=== PATIENT | female | born 1940 | race Caucasian/White ===

== ENCOUNTER 2020-01-19 08:54 | Emergency (ER) | payer MEDICARE, BC, SELFPAY ==
--- NOTE | ~2020-01-19 | CT_ITS ---
EXAMINATION: CT brain wo con DATE: 01/19/2020 09:31 INDICATION: Fall with head injury TECHNIQUE: Computed tomography (CT) of the head was performed without intravenous contrast. Sagittal and coronal reconstructions were performed. The mA was adjusted according to patient size. Iterative reconstruction technique was employed. The dose-length product was 605.33 mGy-cm. COMPARISON: head CT dated 03/24/2019 FINDINGS: No acute fracture. Left frontal temporal craniotomy which extends through the opacified left frontal sinus with fixation plates and screws. Aneurysm clip in the suprasellar cistern. Chronic encephalomal acia in the left frontal temporal region. No acute intracranial hemorrhage, acute infarction or abnor mal extra axial fluid collection. There is moderate scattered white matter hypoattenuation consistent with chronic small vessel ischemic disease. Ventricles are normal and symmetric. No mass/mass effec t. Changes of bilateral intraocular lens replacement. Mastoid air cells and middle ear cavities are c lear. IMPRESSION: 1. No acute fracture or acute intracranial process. 2. Chronic encephalomalacia in the left frontal temporal region with change of prior left frontotempo ral craniotomy and aneurysm clipping at the suprasellar cistern. 3. Moderate scattered nonspecific white matter hypoattenuation consistent with chronic small vessel i schemic disease. Reviewed, dictated and finalized at location A. IMPRESSION: 1. No acute fracture or acute intracranial process. 2. Chronic encephalomalacia in the left frontal temporal region with change of prior left frontotemporal craniotomy and aneurysm clipping at the suprasellar c istern. 3. Moderate scattered nonspecific white matter hypoattenuation consistent with chronic small vessel ischemic disease.
[2020-01-19 09:04] VITALS: BP 115/91; PULSE 69; RESP 18; TEMP 36.6; O2SAT 99
--- NOTE | 2020-01-19 09:07 | ED.FALL ---
HPI - Fall General Chief Complaint: Fall Stated Complaint: fall/hi Time Seen by Provider: 01/19/20 09:06 History of Present Illness HPI Narrative: She fel backwards out of her wheel chair this morning and struck her head. She denies any pain or other symptom. She does report difficulty getting up after, but she says this is not unusual for her. Related Data Allergies Allergy/AdvReac Type Severity Reaction Status Date / Time ciprofloxacin Allergy Mild Verified 05/07/19 18:39 codeine Allergy Mild Verified 05/07/19 18:39 Penicillins Allergy Mild Hives / Verified 05/07/19 18:39 Red Face sulfamethoxazole Allergy Unknown Verified 05/07/19 18:39 tetracycline Allergy Unknown Verified 05/07/19 18:39 trimethoprim Allergy Unknown Verified 05/07/19 18:39 CIPROFLOXACIN HCL Allergy Mild Uncoded 05/07/19 18:39 Contrast Media Allergy Mild Uncoded 05/07/19 18:39 Review of Systems Review of Systems: All systems reviewed & are unremarkable except as noted in HPI and below Neurologic: Denies headache(s) and Denies focal weakness PMFSH Past Medical History Medical History Anxiety Bilateral cataracts Brain aneurysm Chronic back pain HTN (hypertension) Hypothyroid IBS (irritable bowel syndrome) Mitral valve prolapse Orthostatic hypertension Parkinsons Pneumonia TIA (transient ischemic attack) UTI (urinary tract infection) Surgical History Surgical History H/O: hysterectomy History of appendectomy History of cataract surgery History of cholecystectomy History of tonsillectomy Status post clamping of cerebral aneurysm Family History Family History Mother COPD (chronic obstructive pulmonary disease) Lung cancer Sibling COPD (chronic obstructive pulmonary disease) Father Acute myocardial infarction Sibling Breast cancer Social History Social History Smoking status: Never smoker Alcohol intake: never Substance use: never Gender identity (if verbalized by the patient): Female Exam Const: General: healthy appearing, no acute distress and alert Orientation/consciousness: patient oriented x3 HENMT: Head: normal to inspection Neck: Neck: normal visual inspection and no lymphadenopathy Chest: Chest palpation & inspection: no tenderness Resp: Effort & Inspection: normal respiratory effort Auscultation: clear to auscultation bilaterally, no rales, no rhonchi and no wheezes Cardio: Jugular venous distension: no JVD Rate: regular rate Rhythm: regular rhythm Heart sounds: no murmurs GI: Inspection: non-distended GI Palp: Yes Soft to palpation and No Tenderness to palpation present (GI) Skin: General skin exam: normal color Neuro: General: patient oriented x3, moves all extremities, no focal motor deficits and CN's II-XI intact bilaterally Speech: normal speech Other: Resting tremor Extrem: General: no edema Psych: Appearance: well kempt Affect: normal affect Course Vital Signs Vital signs: Vital Signs Temperature 36.6 C 01/19/20 09:04 Pulse Rate 69 01/19/20 09:04 Respiratory Rate 18 01/19/20 09:04 Blood Pressure 115/91 H 01/19/20 09:04 Pulse Oximetry 99 01/19/20 09:04 Temperature 36.6 C 01/19/20 09:04 Pulse Rate 69 01/19/20 09:04 Respiratory Rate 18 01/19/20 09:04 Blood Pressure 115/91 H 01/19/20 09:04 Pulse Oximetry 99 01/19/20 09:04 Discharge Plan Discharge Clinical Impression: Closed head injury Qualifiers: Encounter type: initial encounter Qualified Code(s): S09.90XA - Unspecified injury of head, initial encounter Patient Disposition: NH Long Term/Asst Living Condition: Stable Instructions: Head Injury (ED) Follow-up/Referrals: UNKNOWN,DOCTOR [Primary Care Provider] - Discharge Date/Time: 01/19/20
== END 2020-01-19 10:11 ==
PROVIDERS: Emergency Provider Emergency Medicine
DX: S09.90XA Unspecified injury of head, initial encounter (principal); F41.9 Anxiety disorder, unspecified; I10 Essential (primary) hypertension; E03.9 Hypothyroidism, unspecified; G89.29 Other chronic pain; W05.0XXA Fall from non-moving wheelchair, initial encounter
CPT/HCPCS: 70450; 99284

== ENCOUNTER 2020-01-28 07:24 | Emergency (ER) | payer MEDICARE, BC, SELFPAY ==
--- NOTE | ~2020-01-28 | CT_ITS ---
EXAMINATION: CT brain wo con DATE: 01/28/2020 07:44 INDICATION: Fall with posterior head injury TECHNIQUE: Computed tomography (CT) of the head was performed without intravenous contrast. Sagittal and coronal reconstructions were performed. The mA was adjusted according to patient size. Iterative reconstruction technique was employed. The dose-length product was 605.33 mGy-cm. COMPARISON: head CT dated FINDINGS: Left parietal scalp hematoma and laceration. No acute fracture. Left frontal temporal craniotomy whic h extends through the opacified left frontal sinus with fixation plates and screws. Aneurysm clip in the suprasellar cistern. Chronic encephalomalacia in the left frontal temporal region. No acute intra cranial hemorrhage, acute infarction or abnormal extra axial fluid collection. There is moderate scat tered white matter hypoattenuation consistent with chronic small vessel ischemic disease. Ventricles are normal and symmetric. No mass/mass effect. Changes of bilateral intraocular lens replacement. [place] air cells and middle ear cavities are clear. IMPRESSION: 1. Left parietal scalp, and laceration. No acute fracture or acute intracranial process. 2. Chronic encephalomalacia in the left frontal temporal region with change of prior left frontotempo ral craniotomy and aneurysm clipping at the suprasellar cistern. 3. Moderate scattered nonspecific white matter hypoattenuation consistent with chronic small vessel i schemic disease. Reviewed, dictated and finalized at location A. IMPRESSION: 1. Left parietal scalp, and laceration. No acute fracture or acute intracranial process. 2. Chronic encephalomalacia in the left frontal temporal region with change of prior left frontotemporal craniotomy and aneurysm clipping at the suprasellar c istern. 3. Moderate scattered nonspecific white matter hypoattenuation consistent with chronic small vessel ischemic disease.
--- NOTE | 2020-01-28 07:14 | ED.FALL ---
HPI - Fall General Chief Complaint: Fall Stated Complaint: FALL/HI History of Present Illness HPI Narrative: 79 yo female w/ h/o parkinson's disease, orthostatic hypotension [facility]. She says that she stood up this morning and felt like her knees were giving out. She then fell backwards and struck her head. No lOC. Mild pain. Related Data Home Medications Medication Instructions Recorded Confirmed aspirin [Aspir-81] 81 mg PO 01/28/20 atorvastatin 10 mg PO 01/28/20 carbidopa-levodopa 25 - 100 PO 01/28/20 escitalopram oxalate 20 mg 01/28/20 fludrocortisone 0.1 mg 01/28/20 hydralazine 10 mg PRN PRN 01/28/20 01/28/20 levothyroxine 75 mcg 01/28/20 potassium chloride 20 meq PO 01/28/20 Allergies Allergy/AdvReac Type Severity Reaction Status Date / Time ciprofloxacin Allergy Mild Unknown Verified 01/28/20 07:43 codeine Allergy Mild Unknown Verified 01/28/20 07:43 Penicillins Allergy Mild Hives / Verified 01/28/20 07:43 Red Face sulfamethoxazole Allergy Unknown Unknown Verified 01/28/20 07:43 tetracycline Allergy Unknown Unknown Verified 01/28/20 07:43 trimethoprim Allergy Unknown Unknown Verified 01/28/20 07:43 CIPROFLOXACIN HCL Allergy Mild Unknown Uncoded 01/28/20 07:43 Contrast Media Allergy Mild Unknown Uncoded 01/28/20 07:43 Review of Systems Review of Systems: All systems reviewed & are unremarkable except as noted in HPI and below Constitutional: Constitutional: Denies fever(s) Cardiovascular: Cardiovascular: Denies chest pain Respiratory: Respiratory: Denies dyspnea Gastrointestinal: Gastrointestinal: Denies nausea Neurologic: Reports dizziness and Denies syncope [facility] Social History Social History Smoking status: Never smoker Alcohol intake: never Substance use: never Gender identity (if verbalized by the patient): Female Exam Const: General: healthy appearing, no acute distress and alert Orientation/consciousness: patient oriented x3 HENMT: Other: 3 cm scalp laceration Eyes: Pupils: Equal, round and reactive pupils present Neck: Neck: normal visual inspection and no lymphadenopathy Chest: Chest palpation & inspection: no tenderness Resp: Effort & Inspection: normal respiratory effort Auscultation: clear to auscultation bilaterally, no rales, no rhonchi and no wheezes Cardio: Jugular venous distension: no JVD Rate: regular rate Rhythm: regular rhythm Heart sounds: no murmurs GI: Inspection: non-distended GI Palp: Yes Soft to palpation and No Tenderness to palpation present (GI) Skin: General skin exam: normal color Neuro: General: patient oriented x3 and moves all extremities Speech: normal speech Extrem: General: no edema Psych: Appearance: well kempt Affect: normal affect Course Vital Signs Vital signs: Vital Signs Temperature 36.7 C 01/28/20 07:22 Pulse Rate 64 01/28/20 07:22 Respiratory Rate 18 01/28/20 07:22 Blood Pressure 190/75 H 01/28/20 07:22 Pulse Oximetry 100 01/28/20 07:22 Temperature 36.7 C 01/28/20 07:22 Pulse Rate 68 01/28/20 10:40 Respiratory Rate 18 01/28/20 10:40 Blood Pressure 154/80 H 01/28/20 10:40 Pulse Oximetry 98 01/28/20 10:40 Procedures Laceration Laceration 1: Site: scalp Size (cm): 3 Description: linear Depth: simple, single layer Local Anesthetic: lidocaine 1% and with epi Amount of anesthesia used (mL): 3 ====== Skin Level ====== Skin layer closed with: lai Number of sutures: 3 ====== Subcutaneous Layer ====== ====== Muscle Layer ====== ====== Tendon Layer ====== MDM - Fall MDM Narrative Medical decision making narrative: Dehydration, orthostatic hypotension, UTI, mechanical fall Lab Data Result diagrams: 01/28/20 08:04 01/28/20 08:04 Labs: Lab Results 01/27
[2020-01-28 07:22] VITALS: BP 190/75; PULSE 64; RESP 18; TEMP 36.7; O2SAT 100
--- NOTE | 2020-01-28 07:30 | ECG_ITS ---
Measurements Intervals [place] Rate: 64 P: 35 [place]: 172 QRS: -22 QRSD: 97 T: 21 QT: 433 QTc: 448 Interpretive Statements SINUS RHYTHM BASELINE ARTIFACT- I, III, AVL, V1-V2 NORMAL ECG Electronically Signed On 01-28-2020 7:59:38 CDT by Abdulaziz Montague D.O.
[2020-01-28] MEDS: SODIUM CHLORIDE 0.9% IV 500 ML 999 ML IV CONT (07:59)
[2020-01-28] MEDS: ONDANSETRON INJ 4 MG/2 ML VIAL IV PUSH (07:59)
[2020-01-28 08:12] LABS: Basophils Percent Auto 0.5 % (0.2-1.2); Eosinophils Absolute Auto 0.1 K/mm3 (0-0.3); Eosinophils Percent Auto 0.7 % (0-4.4); Hematocrit 35.4 % (37.0-47.0); Hemoglobin 11.5 g/dL (12.0-15.0); Immature Granulocyte Absolute 0.02 K/mm3 (0.00-0.031); Immature Granulocyte Percent A 0.2 % (0-0.5); Lymphocytes Absolute Auto 0.93 K/mm3 (0.9-3.2); Lymphocytes Percent Auto 11.5 % (18.3-44.2); Mean Corpuscular HGB Conc 32.5 g/dl (32-36); Mean Corpuscular Hemoglobin 30.7 pg (26-34); Mean Corpuscular Volume 94.4 fl (80-100); Mean Platelet Volume 11.5 fl (7.4-10.4); Monocytes Absolute Auto 0.4 K/mm3 (0.1-0.6); Monocytes Percent Auto 4.5 % (2.6-8.5); Neutrophils Absolute Auto 6.7 K/mm3 (1.3-6.7); Neutrophils Percent Auto 82.6 % (45.5-73.1); Platelet Count Result 140 k/mm3 (150-375); Red Blood Count 3.75 M/mm3 (4.2-5.4); Red Cell Distribution Width 12.9 % (11.5-14.5); White Blood Count 8.1 K/mm3 (4.5-10.0)
--- NOTE | 2020-01-28 08:15 | PC.NURSE ---
Pt unable to urinate at this time. Pt given water to drink
[2020-01-28 08:23] LABS: Blood Urea Nitrogen 27 mg/dL (7-17); Calcium 8.3 mg/dL (8.4-10.2); Carbon Dioxide 26 mmol/L (22-30); Chloride 106 mmol/L (98-107); Estimated CRCL calculation 34 ml/min; Estimated Glomerular Filt Rate 43; Glucose 96 mg/dL (65-105); Potassium 4.3 mmol/L (3.4-5.0); Sodium 138 mmol/L (137-145)
[2020-01-28 09:31] LABS: Appearance Urine Clear (Clear); Bilirubin Urine Negative (Negative); Blood Urine 1+ (Negative); Color Urine Yellow (Yellow); Glucose Urine UA Negative (Negative); Ketones Urine Negative (Negative); Leukocyte Esterase Ur 2+ LEU/UL (Negative); Nitrate Urine Negative (Negative); Protein Urine Negative (Negative); Urobilinogen Urine 0.2 mg/dL (<2.0)
[2020-01-28 09:48] VITALS: BP 153/87; PULSE 61; RESP 14; O2SAT 97
[2020-01-28 09:49] LABS: Add Urine Microscopic? YES
[2020-01-28 09:50] LABS: WBC Urine 51-75 /hpf
[2020-01-28 09:51] LABS: Bacteria Urine Trace /hpf; Squamous Epithelial Cell Urine Few /hpf (Few)
--- NOTE | 2020-01-28 10:02 | PC.NURSE ---
Pts daughter called to come and case picker patient
[2020-01-28] MEDS: NITROFURANTOIN MONOHYD MACROCR 100 MG CAP PO (10:39)
[2020-01-28 10:40] VITALS: BP 154/80; PULSE 68; RESP 18; O2SAT 98
== END 2020-01-28 10:43 ==
PROVIDERS: Emergency Provider Emergency Medicine
DX: S01.01XA Laceration without foreign body of scalp, initial encounter (principal); G20 Parkinson's disease; W01.0XXA Fall on same level from slipping, tripping and stumbling without subsequent striking against object, initial encounter; R82.998 Other abnormal findings in urine
CPT/HCPCS: 12002; 36415; 70450; 80048; 81001; 85025; 87077; 87086; 87088; 87186; 93005; 96360; 96374; 99284; A9270; J2405; J7040

== ENCOUNTER 2020-03-06 11:22 | Emergency (ER) | payer MEDICARE, BC, SELFPAY ==
[2020-03-06] VITALS (8 sets, daily range): BP systolic 140–235; BP diastolic 51–91; PULSE 60–70; RESP 16–19; TEMP 36.5–37.2; O2SAT 96–99
--- NOTE | ~2020-03-06 | CT_ITS ---
EXAMINATION: CT brain wo con EXAM DATE: 03/06/2020 11:42 INDICATION: Fall, head injury. TECHNIQUE: Spiral CT of the head was performed without contrast. Axial, coronal and sagittal images were reviewed. The dose-length product (DLP) for this examination was 605.33 mGy-cm. The exposure w as tailored according to patient size, and iterative reconstruction (ASIR) was used as additional dos e reduction technique. Comparison is made to prior examination from 01/28/2020. FINDINGS: There is old left frontal craniotomy with opacified left frontal sinus, similar to prior st udy. There is underlying left frontal encephalomalacia. Left parasellar aneurysm clip. There is no ac lac vieux intraparenchymal hemorrhage. No evidence of intraparenchymal brain mass lesion. No evidence of acute infarction. Please note that initial head CT has limited sensitivity for small or acute infarc tions. There is mild to moderate periventricular and subcortical hypodensity, nonspecific but probabl y related to small vessel ischemic disease. There is mild to moderate prominence of the sulci and v entricles related to cerebral atrophy. There is intracranial carotid arteriosclerosis. There are n o extra-axial collections. There is no mass effect or midline shift. Patient has had bilateral ocul ar lens surgery. Soft tissue is unremarkable. There is some dependent left maxillary sinus opacity. There is no interval change. IMPRESSION: 1. No acute intracranial findings. 2. Surgical, chronic changes. Reviewed, dictated and finalized at location B.
--- NOTE | ~2020-03-06 | CT_ITS ---
EXAMINATION: CT facial & cervical spine wo EXAM DATE: 03/06/2020 11:42 INDICATION: Fall, headache and facial injury. TECHNIQUE: Spiral CT of the facial bones was acquired in the axial plane. Coronal reformatted images were also reviewed. Spiral CT of the cervical spine was performed without contrast. Axial images we re reviewed. Coronal and sagittal reformatted images were also reviewed. The dose-length product (DL P) for this examination was 242.93 mGy-cm. The exposure was tailored according to patient size, and iterative reconstruction (ASIR) was used as additional dose reduction technique. Correlation is made to CT cervical spine 11/20/2018. FINDINGS: FACIAL CT: Small nondisplaced fracture of the left maxillary sinus posterior wall, with small amount of proteinaceous fluid likely blood in the maxillary sinus. No other facial fracture identified. Larg e contusion over the left cheek. The orbits, globes and extraocular muscles are unremarkable. Bila teral cataract surgery. There is large contusion over the left cheek. CERVICAL CT: There is no evidence of acute cervical fracture. The odontoid process is intact. Pre-d ens space is normal. Prevertebral soft tissue is normal. There are no soft tissue abnormalities mari ntified. There is no disc space widening or traumatic vertebral body subluxation suspected. There i s advanced cervical arthropathy. There is moderate disc disease at the lower cervical levels. The C2 -3 facet joints are fused. IMPRESSION: 1. Acute nondisplaced left maxillary sinus posterior wall fracture, small amount of blood in the sin us. 2. Advanced cervical arthropathy. No cervical fracture. Reviewed, dictated and finalized at location B. IMPRESSION: 1. Acute nondisplaced left maxillary sinus posterior wall fracture, small amou nt of blood in the sinus. 2. Advanced cervical arthropathy. No cervical fracture.
--- NOTE | 2020-03-06 11:30 | PC.NURSE ---
Assessment reveals swelling and bruising to left cheek along with complaints of pain to the area. No crepitus noted with palpation. Patient has free movement of eyes without difficulty. There is also a bruise noted to the patient's left anterior shoulder, however there is no complaint of pain with palpation to the area. No other obvious injuries noted at this time.
--- NOTE | 2020-03-06 11:32 | ED.AMS ---
HPI - Altered Mental Status General Chief Complaint: Fall Stated Complaint: Fall Time Seen by Provider: 03/06/20 11:30 History of Present Illness HPI narrative: She tripped over a curb in the parking lot while leaving an eye doctor appointment today. This was witnessed. No lOC. After the fall she was noted to be confused. EMS reports that she was only oriented to self. On arrival to the ED she is still confused. She only complains of pain to the left shoulder. I have seen the patient myself in the past and know the she has a h/o orthostatic hypotension and very labile blood pressure and parkinson's disease. Related Data Home Medications Medication Instructions Recorded Confirmed aspirin [Aspir-81] 81 mg PO 01/28/20 atorvastatin 10 mg PO 01/28/20 carbidopa-levodopa 25 - 100 PO 01/28/20 escitalopram oxalate 20 mg 01/28/20 fludrocortisone 0.1 mg 01/28/20 levothyroxine 75 mcg 01/28/20 potassium chloride 20 meq PO 01/28/20 Allergies Allergy/AdvReac Type Severity Reaction Status Date / Time ciprofloxacin Allergy Mild Unknown Verified 03/06/20 11:48 codeine Allergy Mild Unknown Verified 03/06/20 11:48 Penicillins Allergy Mild Hives / Verified 03/06/20 11:48 Red Face sulfamethoxazole Allergy Unknown Unknown Verified 03/06/20 11:48 tetracycline Allergy Unknown Unknown Verified 03/06/20 11:48 trimethoprim Allergy Unknown Unknown Verified 03/06/20 11:48 CIPROFLOXACIN HCL Allergy Mild Unknown Uncoded 03/06/20 11:48 Contrast Media Allergy Mild Unknown Uncoded 03/06/20 11:48 Review of Systems Review of Systems: ROS unobtainable: Yes unobtainable due to mental status [facility] Social History Social History Smoking status: Never smoker Alcohol intake: never Substance use: never Gender identity (if verbalized by the patient): Female Exam Const: General: no acute distress and confusion Other: oriented x2 HENMT: Other: Swelling to left cheek Eyes: Other: Pupils dilated(likely from eye exam prior to fall) Neck: Neck: normal visual inspection Chest: Chest palpation & inspection: normal inspection of the chest and no tenderness Resp: Effort & Inspection: normal respiratory effort Auscultation: clear to auscultation bilaterally Cardio: Rate: regular rate Rhythm: regular rhythm GI: GI Palp: Yes Soft to palpation and No Tenderness to palpation present (GI) Back/Spine/Pelvis: Cervical Spine: collar present Other: No tenderness Skin: Other: Left facial bruising Neuro: General: moves all extremities Speech: Abnormal speech present (mildly delayed) Course Vital Signs Vital signs: Vital Signs Temperature 37.2 C 03/06/20 11:22 Pulse Rate 70 03/06/20 11:22 Respiratory Rate 18 03/06/20 11:22 Blood Pressure 235/91 H 03/06/20 11:22 Pulse Oximetry 99 03/06/20 11:22 Temperature 36.5 C 03/06/20 13:01 Pulse Rate 69 03/06/20 14:08 Respiratory Rate 17 03/06/20 14:08 Blood Pressure 140/51 L 03/06/20 14:08 Pulse Oximetry 98 03/06/20 14:08 MDM - Altered Mental Status MDM Narrative Medical decision making narrative: She has a non-displaced posterior maxillary wall fracture. Will provide information for Plastics follow-up Medical Records Attestation: I reviewed the patient's medical records. Lab Data Attestation: I reviewed the patient's lab results. Result diagrams: 03/06/20 11:46 03/06/20 11:46 Labs: Lab Results 03/06/20 03/06/20 03/06/20 Range/Units 11:46 11:46 11:46 WBC 7.6 (4.5-10.0) K/mm3 RBC 3.93 L (4.2-5.4) M/mm3 Hgb 11.8 L (12.0-15.0) g/dL Hct 36.8 L (37.0-47.0) % MCV 93.6 (80-100) fl MCH 30.0 (26-34) pg MCHC 32.1 (32-36) g/dl RDW 12.4 (11.5-14.5) % Plt Count 150 (150-375) k/mm3 MPV 11.7 H (7.4-10.4) fl Immature Gran % (Auto) 0.3 (0-0.5) % Neut % (Auto) 64.6 (45.5-73.1) % Lymph % (Auto) 26.5 (18.3-44.2) % Mo
[2020-03-06] MEDS: LABETALOL HCL INJ 100 MG/20 ML VIAL 20 MG IV PUSH (11:46)
[2020-03-06 11:56] LABS: Basophils Absolute Auto 0.1 K/mm3 (0.0-0.1); Basophils Percent Auto 0.8 % (0.2-1.2); Eosinophils Absolute Auto 0.1 K/mm3 (0-0.3); Eosinophils Percent Auto 1.2 % (0-4.4); Hematocrit 36.8 % (37.0-47.0); Hemoglobin 11.8 g/dL (12.0-15.0); Immature Granulocyte Absolute 0.02 K/mm3 (0.00-0.031); Immature Granulocyte Percent A 0.3 % (0-0.5); Lymphocytes Absolute Auto 2.01 K/mm3 (0.9-3.2); Lymphocytes Percent Auto 26.5 % (18.3-44.2); Mean Corpuscular HGB Conc 32.1 g/dl (32-36); Mean Corpuscular Volume 93.6 fl (80-100); Mean Platelet Volume 11.7 fl (7.4-10.4); Monocytes Absolute Auto 0.5 K/mm3 (0.1-0.6); Monocytes Percent Auto 6.6 % (2.6-8.5); Neutrophils Absolute Auto 4.9 K/mm3 (1.3-6.7); Neutrophils Percent Auto 64.6 % (45.5-73.1); Platelet Count Result 150 k/mm3 (150-375); Red Blood Count 3.93 M/mm3 (4.2-5.4); Red Cell Distribution Width 12.4 % (11.5-14.5); White Blood Count 7.6 K/mm3 (4.5-10.0)
[2020-03-06 12:06] LABS: Prothrombin Time 12.9 Seconds (11.1-14.7)
[2020-03-06 12:07] LABS: Partial Thromboplastin Time 26.6 SECONDS (22.3-36.8)
[2020-03-06 12:08] LABS: Alanine Aminotransferase 15 U/L (4-35); Alkaline Phosphatase 98 U/L (38-126); Anion Gap 7 mmol/L (8-16); Aspartate Amino Transferase 36 U/L (14-36); Bilirubin,Total 0.6 mg/dL (0.2-1.3); Blood Urea Nitrogen 24 mg/dL (7-17); Calcium 8.5 mg/dL (8.4-10.2); Carbon Dioxide 26 mmol/L (22-30); Chloride 106 mmol/L (98-107); Estimated Glomerular Filt Rate 48; Glucose 95 mg/dL (65-105); Potassium 4.5 mmol/L (3.4-5.0); Sodium 139 mmol/L (137-145)
[2020-03-06] MEDS: hydrALAZINE HCL 20 MG/ML VIAL 10 MG IV PUSH (13:08)
--- NOTE | 2020-03-06 13:13 | PC.NURSE ---
Per EDP it is ok for patient to take home medication of Carvidopa/Levidopa at this time.
--- NOTE | 2020-03-06 13:23 | ECG_ITS ---
Measurements Intervals [place] Rate: 69 P: 112 [place]: 146 QRS: -18 QRSD: 98 T: 31 QT: 417 QTc: 449 Interpretive Statements SINUS RHYTHM BASELINE ARTIFACT- I, II, III, AVR, AVL, AVF, V1-V6 BORDERLINE ECG Electronically Signed On 03-06-2020 13:50:37 CDT by Abdulaziz Montague D.O.
[2020-03-06 13:37] LABS: Add Urine Microscopic? YES; Appearance Urine Clear (Clear); Bacteria Urine Trace /hpf; Bilirubin Urine Negative (Negative); Blood Urine 1+ (Negative); Color Urine Yellow (Yellow); Glucose Urine UA Negative (Negative); Ketones Urine Negative (Negative); Leukocyte Esterase Ur 3+ LEU/UL (Negative); Mucus Urine Rare /lpf; Nitrate Urine Negative (Negative); Protein Urine Negative (Negative); Specific Grav Ur 1.017 (1.001-1.035); Squamous Epithelial Cell Urine Many /hpf (Few); Urobilinogen Urine Negative mg/dL (<2.0)
--- NOTE | 2020-03-06 14:11 | PC.NURSE ---
REPORT CALLED TO [facility] AT THIS TIME.
== END 2020-03-06 14:10 | disposition home or self-care (01) ==
PROVIDERS: Emergency Provider Emergency Medicine; PCP Nurse Practitioner Family
DX: S02.40DA Maxillary fracture, left side, initial encounter for closed fracture (principal); Z79.82 Long term (current) use of aspirin; G20 Parkinson's disease; R94.31 Abnormal electrocardiogram [ECG] [EKG]; R82.998 Other abnormal findings in urine; W10.1XXA Fall (on)(from) sidewalk curb, initial encounter
CPT/HCPCS: 36415; 70450; 70486; 72125; 80053; 81001; 85025; 85610; 85730; 87086; 87088; 93005; 96374; 96375; 99284; J0360

== ENCOUNTER 2020-03-07 08:06 | Observation (INO) | payer MEDICARE, BC, SELFPAY ==
--- NOTE | ~2020-03-07 | CT_ITS ---
EXAMINATION: CT facial bones wo con DATE: 03/07/2020 09:15 INDICATION: Head injury, left facial swelling TECHNIQUE: Computed tomography (CT) of the facial bones and maxillofacial region was performed withou t intravenous contrast. The dose-length product (DLP) was 298.92 mGy-cm. Automated exposure control a nd iterative reconstruction technique were employed. COMPARISON: 03/06/2020 FINDINGS: There is a left maxillary soft tissue hematoma with interval increase in size. Again seen i s a nondisplaced posterior wall fracture of the maxillary sinus without significant change. There is stable hemorrhagic opacification of the left maxillary sinus. No new fracture is identified. Changes of left frontal craniotomy and left parasellar aneurysm clipping are again noted. There is chronic op acification of the left frontal sinus. IMPRESSION: 1. Left maxillary soft tissue hematoma with interval increase in size. 2. Nondisplaced posterior wall fracture of the left maxillary sinus and partial hemorrhagic opacifica tion without significant change. Reviewed, dictated and finalized at location A. IMPRESSION: 1. Left maxillary soft tissue hematoma with interval increase in size. 2. Nondisplaced posterior wall fracture of the left maxillary sinus and partial hemorrhagic opacification without significant change.
--- NOTE | ~2020-03-07 | XR_ITS ---
EXAMINATION: XR knee LT 2V DATE: 03/08/2020 08:43 INDICATION: Left knee pain TECHNIQUE: Two views of the left knee were obtained. COMPARISON: 07/22/2019 FINDINGS: Alignment is normal. No fracture or osteochondral lesion. There is mild tricompartmental os teoarthritis characterized by tiny marginal osteophytes. No joint effusion/synovitis. Calcified athe rosclerosis is noted. IMPRESSION: 1. Mild osteoarthritis. Reviewed, dictated and finalized at location A. IMPRESSION: 1. Mild osteoarthritis.
--- NOTE | ~2020-03-07 | CT_ITS ---
EXAMINATION: CT brain wo con INDICATION: Head injury COMPARISON: 03/06/2020 TECHNIQUE: Standard unenhanced head CT. The dose-length product (DLP) was 681.00 mGy-cm. The mA was a djusted according to patient size. Iterative reconstruction technique was employed. FINDINGS: There is interval enlargement of a left maxillary soft tissue hematoma. There is no acute i ntraparenchymal hemorrhage. No evidence of mass lesion. No evidence of acute infarction. A left merrill ellar aneurysm clip is present. There is chronic encephalomalacia in the left frontal and temporal lo bes. There is mild periventricular and subcortical hypodensity probably related to small vessel ische bunny disease. There is mild to moderate prominence of the sulci and ventricles related to cerebral atr ophy. Intracranial calcified cerebral atherosclerosis is noted. There are no extra-axial collections. There is no mass effect or midline shift. An old left frontal craniotomy is again noted. There is ch ronic opacification of the left frontal sinus. There is persistent hemorrhagic opacification of the l eft maxillary sinus. IMPRESSION: 1. Worsening left maxillary soft tissue hematoma without acute intracranial abnormality. 2. Chronic findings related to left parasellar aneurysm clipping. Reviewed, dictated and finalized at location A. IMPRESSION: 1. Worsening left maxillary soft tissue hematoma without acute intracranial abn ormality. 2. Chronic findings related to left parasellar aneurysm clipping.
--- NOTE | ~2020-03-07 | XR_ITS ---
EXAMINATION: XR hip BI 2V w AP pelvis DATE: 03/08/2020 08:43 INDICATION: Hip pain TECHNIQUE: AP view the pelvis and two views of each hip were obtained. COMPARISON: 05/07/2019 FINDINGS: Bone alignment is normal. There is no fracture. Mild bilateral hip osteoarthritis is noted. The soft tissues are unremarkable. IMPRESSION: 1. No acute osseous abnormality. Reviewed, dictated and finalized at location A.
[2020-03-07 08:03] VITALS: BP 197/87; PULSE 69; RESP 16; TEMP 36.9; O2SAT 96
--- NOTE | 2020-03-07 08:36 | ED.FALL ---
HPI - Fall General Chief Complaint: Fall Stated Complaint: fall History of Present Illness HPI Narrative: She fell this morning. She is not sure if she fell from standing or fell after sitting down in her wheelchair. She struck the right side of her face in the fall. She has severe pain and swelling in the left side of the face. She was seen here yesterday after a fall and found to have a fracture of the orbit on the left. She had pain and swelling at that time, but says that it is much worse now. She has a h/o frequent falls due to parkinson's, orthostatic hypotension and labile blood pressure. Related Data Home Medications Medication Instructions Recorded Confirmed aspirin [Aspir-81] 81 mg PO 01/28/20 atorvastatin 10 mg PO 01/28/20 carbidopa-levodopa 25 - 100 PO 01/28/20 escitalopram oxalate 20 mg 01/28/20 fludrocortisone 0.1 mg 01/28/20 levothyroxine 75 mcg 01/28/20 potassium chloride 20 meq PO 01/28/20 Allergies Allergy/AdvReac Type Severity Reaction Status Date / Time ciprofloxacin Allergy Mild Unknown Verified 03/06/20 11:48 codeine Allergy Mild Unknown Verified 03/06/20 11:48 gadobenic acid Allergy Mild Unknown Verified 03/07/20 08:59 [From contrast - MRI] iohexol Allergy Mild Unknown Verified 03/07/20 08:59 [From contrast - CT, X-RAY] Penicillins Allergy Mild Hives / Verified 03/06/20 11:48 Red Face sulfamethoxazole Allergy Unknown Unknown Verified 03/06/20 11:48 tetracycline Allergy Unknown Unknown Verified 03/06/20 11:48 trimethoprim Allergy Unknown Unknown Verified 03/06/20 11:48 Contrast Media Allergy Mild Unknown Uncoded 03/06/20 11:48 Review of Systems Review of Systems: All systems reviewed & are unremarkable except as noted in HPI and below Constitutional: Constitutional: Denies fever(s) Eyes: Eyes: Denies change in vision Cardiovascular: Cardiovascular: Denies chest pain Respiratory: Respiratory: Denies dyspnea Gastrointestinal: Gastrointestinal: Denies nausea and Denies vomiting Genitourinary: Genitourinary: Denies nocturia and Denies dysuria Musculoskeletal: Musculoskeletal: Denies back pain Neurologic: Denies dizziness, Reports headache(s) and Denies weakness [facility] Social History Social History Smoking status: Never smoker Alcohol intake: never Substance use: never Gender identity (if verbalized by the patient): Female Exam Const: General: no acute distress and alert Orientation/consciousness: patient oriented x3 HENMT: Other: Diffuse bruising and swelling of the left side of the face Eyes: Conjunctivae: conjunctivae normal Pupils: Equal, round and reactive pupils present EOM: EOMs intact bilaterally Neck: Neck: normal visual inspection Chest: Chest palpation & inspection: normal inspection of the chest and no tenderness Resp: Effort & Inspection: normal respiratory effort Auscultation: clear to auscultation bilaterally Cardio: Rate: regular rate Rhythm: regular rhythm Back/Spine/Pelvis: Cervical Spine: collar present Other: No cervical spine tenderness Skin: Wounds: no wounds Neuro: General: patient oriented x3, moves all extremities and no focal motor deficits Speech: normal speech Extrem: General: normal to inspection Course Vital Signs Vital signs: Vital Signs Temperature 36.9 C 03/07/20 08:03 Pulse Rate 69 03/07/20 08:03 Respiratory Rate 16 03/07/20 08:03 Blood Pressure 197/87 H 03/07/20 08:03 Pulse Oximetry 96 03/07/20 08:03 Temperature 36.8 C 03/07/20 13:20 Pulse Rate 68 03/07/20 13:20 Respiratory Rate 18 03/07/20 13:20 Blood Pressure 188/81 H 03/07/20 13:20 Pulse Oximetry 95 03/07/20 13:20 MDM - Fall MDM Narrative Medical decision making narrative: No new injury from fall today. She seems to be falling more frequently and will be at significant [facility] I will plan to admit her for P
[2020-03-07 09:06] LABS: Basophils Absolute Auto 0.1 K/mm3 (0.0-0.1); Basophils Percent Auto 0.6 % (0.2-1.2); Eosinophils Absolute Auto 0.1 K/mm3 (0-0.3); Eosinophils Percent Auto 1.1 % (0-4.4); Hematocrit 35.8 % (37.0-47.0); Hemoglobin 11.7 g/dL (12.0-15.0); Immature Granulocyte Absolute 0.03 K/mm3 (0.00-0.031); Immature Granulocyte Percent A 0.3 % (0-0.5); Lymphocytes Absolute Auto 1.06 K/mm3 (0.9-3.2); Lymphocytes Percent Auto 10.9 % (18.3-44.2); Mean Corpuscular HGB Conc 32.7 g/dl (32-36); Mean Corpuscular Hemoglobin 30.5 pg (26-34); Mean Corpuscular Volume 93.2 fl (80-100); Mean Platelet Volume 11.8 fl (7.4-10.4); Monocytes Absolute Auto 0.5 K/mm3 (0.1-0.6); Monocytes Percent Auto 4.7 % (2.6-8.5); Neutrophils Percent Auto 82.4 % (45.5-73.1); Platelet Count Result 157 k/mm3 (150-375); Red Blood Count 3.84 M/mm3 (4.2-5.4); Red Cell Distribution Width 12.7 % (11.5-14.5); White Blood Count 9.8 K/mm3 (4.5-10.0)
[2020-03-07 09:16] LABS: INR 1.2; Prothrombin Time 14.5 Seconds (11.1-14.7)
[2020-03-07 09:18] LABS: Partial Thromboplastin Time 25.9 SECONDS (22.3-36.8)
[2020-03-07 09:21] LABS: Anion Gap 5 mmol/L (8-16); Blood Urea Nitrogen 20 mg/dL (7-17); Calcium 8.5 mg/dL (8.4-10.2); Carbon Dioxide 25 mmol/L (22-30); Chloride 105 mmol/L (98-107); Estimated CRCL calculation 36 ml/min; Estimated Glomerular Filt Rate 48; Glucose 102 mg/dL (65-105); Sodium 135 mmol/L (137-145)
[2020-03-07 09:32] LABS: Potassium 4.4 mmol/L (3.4-5.0)
[2020-03-07 12:35] VITALS: BP 174/68; PULSE 68; RESP 16; O2SAT 96
[2020-03-07 13:15] VITALS: BP 158/66; PULSE 62; RESP 16
[2020-03-07 13:20] VITALS: BP 188/81; PULSE 68; RESP 18; TEMP 36.8; O2SAT 95; BMI 21.9
--- NOTE | 2020-03-07 14:16 | PM.IMHP ---
H&P: HPI History of Present Illness Date/Time: 03/07/20 14:15 Chief complaint: Fall. Narrative: Jazmine Vasques is a 79-year-old female with Parkinson with autonomic dysfunction and history of frequent falls secondary to orthostatic hypotension who presented to the emergency department earlier today via EMS from her assisted living facility for evaluation after another fall. 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 She was found to have a nondisplaced posterior maxillary wall fracture, with instructions to follow-up with plastic surgery as an outpatient. Unfortunately this morning her wheelchair moved when she went to sit down, causing her to fall forward onto the floor, hitting her cheek in exactly the same spot that she had the previous day. She also sustained bruising to the left shoulder and complains of mild discomfort in the left shoulder, left hip, and left knee. Initially she had quite a bit of swelling about the left eye, however she reports that it has improved quite a bit since admission . She does not believe there was any loss of consciousness with the fall, and maintains that it was purely a mechanical fall. She despite her history orthostatic hypotension, she tells me that she never gets lightheaded before falling. She further denies chest pain, pleuritic pain and shortness of breath. No pain with extraocular motions. She denies headache and neck ache. No focal weakness or paresthesias. Review of Systems Review of Systems: Narrative: 12 systems were reviewed with pertinent positives and negatives as per HPI. No fever, chills, or sweats. She denies recent cold and flu symptoms. No cough or shortness of breath. She has not had nausea, vomiting, diarrhea, or dysuria. except as documented, all other systems were reviewed and are negative. 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 Chronic anemia Chronic back pain Chronic kidney disease, stage 3 Baseline creatinine between 1.1 and 1.20. Essential hypertension Hypothyroid Irritable bowel syndrome Mitral valve prolapse Orthostatic hypertension Parkinsons TIA (transient ischemic attack) Surgical History Surgical History (Updated 03/07/20 @ 14:31 by Merline Garcia PA-C) History of appendectomy History of cataract surgery History of cholecystectomy History of partial hysterectomy History of tonsillectomy Status post clamping of cerebral aneurysm Left frontal craniotomy with left parasellar aneurysm clipping in 2008. Family History Family History Mother COPD (chronic obstructive pulmonary disease) Lung cancer Sibling COPD (chronic obstructive pulmonary disease) Father Acute myocardial infarction Sibling Breast cancer Social History Social History (Updated 03/07/20 @ 23:21 by Merline Garcia PA-C) Social History: Surrogate decision maker: Jordyn White, daughter. Code status: Full code at this time, patient states I don't know. Smoking status: Never smoker Alcohol intake: former Substance use: never Additional living arrangements comments: Assisted living at [facility]. He she typically gets around with wheelchair, however it sounds as though she does not use a cane or a walker when transferring. 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 Gender identity (if verbalized by the patient): Female Spiritual care concerns: No Meds Home Medications and Allergies Home Medications Medication Instructions Recorded Confirmed Type aspirin [Aspir-81] 81 mg PO DAILY 01/28/20 03/07/20 History atorvastatin 10 mg PO DAILY 01/28/20 03/07/20 History carbidopa-lev
[2020-03-07] MEDS: ACETAMINOPHEN 325 MG TABLET 650 MG PO (15:33)
--- NOTE | 2020-03-07 15:42 | PC.NURSE ---
This patient, Jazmine Vasques, was admitted to Medical Room 347-01. Patient/family oriented to hospital policies and general routines including ID bracelet, bed and alarms, visiting hours, pain management, procedures, bathroom and other care routines, personal items, smoking policy, room service/diet, and visiting hours. Valuables list has been completed. Information on how to activate the Rapid Response Team has been discussed. Patient/Family are encouraged to report perceived risks to care and to ask questions if they do not understand what they are told or what they should do.
[2020-03-07 20:00] VITALS: BP 108/50; BP 135/87; BP 226/29; PULSE 55
[2020-03-07 22:00] VITALS: BP 156/86; PULSE 60; RESP 18; TEMP 36.6; O2SAT 97
--- NOTE | 2020-03-07 23:42 | PC.NURSE ---
called radiology noted xrays not needed until a.m.
[2020-03-08] VITALS (14 sets, daily range): BP systolic 86–226; BP diastolic 38–95; PULSE 53–71; RESP 16–18; TEMP 35.7–36.8; O2SAT 95–98
[2020-03-08] MEDS: CARBIDOPA/LEVODOPA 12.5/50 MG TABLET 1 TABLET PO ×3 (05:33→16:58)
[2020-03-08] MEDS: CARBIDOPA/LEVODOPA 25/100 MG TABLET 1 TABLET PO ×3 (05:33→16:58)
[2020-03-08] MEDS: LEVOTHYROXINE SODIUM 75 MCG TABLET PO (05:33)
[2020-03-08] MEDS: ACETAMINOPHEN 325 MG TABLET 650 MG PO ×2 (06:37→20:44)
[2020-03-08 06:56] LABS: Hematocrit 36.3 % (37.0-47.0); Mean Corpuscular HGB Conc 33.1 g/dl (32-36); Mean Corpuscular Hemoglobin 30.6 pg (26-34); Mean Corpuscular Volume 92.6 fl (80-100); Mean Platelet Volume 11.4 fl (7.4-10.4); Platelet Count Result 162 k/mm3 (150-375); Red Blood Count 3.92 M/mm3 (4.2-5.4); Red Cell Distribution Width 12.6 % (11.5-14.5); White Blood Count 7.9 K/mm3 (4.5-10.0)
[2020-03-08 07:22] LABS: Alanine Aminotransferase 10 U/L (4-35); Albumin Level 3.7 g/dL (3.5-5.1); Alkaline Phosphatase 66 U/L (38-126); Anion Gap 5 mmol/L (8-16); Aspartate Amino Transferase 25 U/L (14-36); Bilirubin,Total 1.2 mg/dL (0.2-1.3); Blood Urea Nitrogen 17 mg/dL (7-17); Calcium 8.5 mg/dL (8.4-10.2); Carbon Dioxide 28 mmol/L (22-30); Chloride 102 mmol/L (98-107); Estimated CRCL calculation 45 ml/min; Estimated Glomerular Filt Rate 60; Glucose 101 mg/dL (65-105); Magnesium 2.2 mg/dL (1.6-2.3); Potassium 4.2 mmol/L (3.4-5.0); Sodium 135 mmol/L (137-145)
[2020-03-08] MEDS: ASPIRIN 81 MG ENTERIC TABLET PO (09:08)
[2020-03-08] MEDS: ESCITALOPRAM OXALATE 10 MG TABLET 20 MG PO (09:08)
[2020-03-08] MEDS: POTASSIUM CHLORIDE 20 MEQ TABLET.ER PO (09:08)
[2020-03-08] MEDS: ATORVASTATIN 10 MG TABLET PO (09:08)
[2020-03-08] MEDS: FLUDROCORTISONE ACETATE 0.1 MG TABLET PO ×3 (09:08→16:58)
[2020-03-08] MEDS: CLINDAMYCIN HCL 150 MG CAP 300 MG PO ×2 (11:30→20:44)
--- NOTE | 2020-03-08 16:39 | PM.IMPN ---
Progress Note: A&P Assessment and Plan (1) Recurrent falls: Code(s): R29.6 - Repeated falls Status: Acute Assessment and Plan: Secondary to a combination of balance issues from her Parkinson's and probable orthostasis. She denies syncopal episode, however I think it would be prudent to monitor overnight to rule out cardiac dysrhythmia. Initiate fall precautions and consult PT/OT. __03/08/20 16:39 patient is 78-year-old female with history of frequent falls due to parkinson's, orthostatic hypotension and labile blood pressure. patient initially presented emergency department on 03/07 after she had fell from her wheelchair and landed on the left side of her face, imaging showed left maxillary fracture patient was discharged and then patient again fell and landed on the same left side of her face and is now being admitted further evaluation, we have started patient on clindamycin to prevent any infection to her maxillary fracture, patient has a significant history of orthostatic hypotension, patient is seen by ditto machine operator at [facility] but does not remember all details, will consult ditto machine operator and do cardiac echo for further evaluation, will have a PT OT evaluate the patient, monitor patient orthostatic, patient has history of Parkinson's most likely patient has a with autonomic dysfunction leading to hypotension will consult neurologist further recommendation, her son is present in the room answered all his questions (2) Left maxillary fracture: Code(s): S02.40DA - Maxillary fracture, left side, initial encounter for closed fracture Status: Acute Assessment and Plan: CT today shows interval increase in hematoma, which the patient reports has improved since admission. She will need follow-up with plastic surgery on discharge. started the patient on clindamycin to prevent any infection (3) Parkinsons: Code(s): G20 - Parkinson's disease Status: Acute Assessment and Plan: Continue carbidopa levodopa. (4) Essential hypertension: Code(s): I10 - Essential (primary) hypertension Status: Acute Assessment and Plan: Blood pressures were reviewed and they are in the 150s to 170s. Given her repeated falls and orthostatic hypotension, she is no longer on antihypertensives. Will continue to monitor these closely as they seemed to be creeping up more recently will consult neurology for further recommendation. (5) Chronic kidney disease, stage 3: Code(s): N18.3 - Chronic kidney disease, stage 3 (moderate) Status: Acute Assessment and Plan: Creatinine is stable on review of previous labs. (6) Chronic anemia: Code(s): D64.9 - Anemia, unspecified Status: Acute Assessment and Plan: Hemoglobin and hematocrit are stable on review of previous labs. (7) Hypothyroid: Code(s): E03.9 - Hypothyroidism, unspecified Status: Acute Assessment and Plan: Continue levothyroxine and check TSH. Subjective Date/time seen: 03/08/20 16:39 patient is 78-year-old female with history of frequent falls due to parkinson's, orthostatic hypotension and labile blood pressure. patient initially presented emergency department on 03/07 after she had fell from her wheelchair and landed on the left side of her face, imaging showed left maxillary fracture patient was discharged and then patient again fell and landed on the same left side of her face and is now being admitted further evaluation, we have started patient on clindamycin to
[2020-03-09] VITALS (8 sets, daily range): BP systolic 99–222; BP diastolic 45–81; PULSE 52–67; RESP 14–18; TEMP 36.7; O2SAT 97–98
--- NOTE | 2020-03-09 | ECHO_ITS ---
Patient Info Name: Jazmine Vasques Age: 79 years : 1940 Gender: Female Ht: 68 in Wt: 144 lbs BSA: 1.77 m2 HR: 65 bpm BP: 222 / 86 mmHg Heart Rhythm: Sinus Rhythm Technical Quality: Good Exam Date: 03/09/2020 9:07 AM Exam Location: [facility] Pulmonary Exam Room: 347 Patient Status: Inpatient Admit Date: 03/07/2020 Staff Ordering Physician: Bridgett Carlisle MD Construction Code Administrator: Vero Trimble RDCS Attending Provider: Galindo Pollock MD Exam Type: CA echo doppler color flow Study Info Indications - syncope/ s/p fall Complete two-dimensional, color flow and Doppler transthoracic echocardiogram is performed. Summary 1. Left ventricular systolic function is normal, estimated at 65-70%. 2. The left ventricular diastolic function is grade I diastolic dysfunction. 3. Left atrial chamber dimension is mildly enlarged. 4. Mild aortic tricuspid and pulmonic insufficiency. Left Ventricle Left ventricular chamber dimension is normal. Left ventricular systolic function is normal, estimated at 65-70%. There is mild concentric increased left ventricular wall thickness. The left ventricular diastolic function is grade I diastolic dysfunction. Right Ventricle Right ventricular chamber dimension is normal. Left Atria Left atrial chamber dimension is mildly enlarged. Right Atria Right atrial chamber dimension is normal. Aortic Valve The aortic valve is normal. There is trace aortic valve regurgitation. Pulmonic Valve The pulmonic valve is not well visualized. There is mild pulmonic regurgitation. Mitral Valve The mitral valve has normal leaflets. There is no mitral valve regurgitation. Tricuspid Valve The tricuspid valve leaflets are normal. There is mild tricuspid valve regurgitation. Pericardium/Pleural The pericardium appears normal. Aorta The aortic root size at the sinus of Valsalva is normal. Left Ventricular Outflow Tract Name Value Normal LVOT 2D LVOT Diameter 2.0 cm LVOT Doppler LVOT Peak Gradient 4 mmHg LVOT Mean Gradient 2 mmHg LVOT VTI 30 cm LVOT VTI/AV VTI Ratio 0.7 LVOT Stroke Volume 94 ml LVOT CO 14.0 l/min LVOT CI 7.9 l/min/m2 Pulmonic Valve Name Value Normal PV Doppler PV Peak Gradient 5 mmHg PV Regurgitation Doppler ID Peak End Diastolic Velocity 113 cm/s Mitral Valve Name Value Normal
[2020-03-09] MEDS: LEVOTHYROXINE SODIUM 75 MCG TABLET PO (05:49)
[2020-03-09] MEDS: CARBIDOPA/LEVODOPA 12.5/50 MG TABLET 1 TABLET PO ×3 (05:50→17:46)
[2020-03-09] MEDS: CARBIDOPA/LEVODOPA 25/100 MG TABLET 1 TABLET PO ×3 (05:50→17:46)
[2020-03-09 06:47] LABS: Hemoglobin 12.3 g/dL (12.0-15.0); Mean Corpuscular HGB Conc 32.4 g/dl (32-36); Mean Corpuscular Hemoglobin 30.1 pg (26-34); Mean Corpuscular Volume 93.1 fl (80-100); Mean Platelet Volume 11.7 fl (7.4-10.4); Platelet Count Result 183 k/mm3 (150-375); Red Blood Count 4.08 M/mm3 (4.2-5.4); Red Cell Distribution Width 12.3 % (11.5-14.5); White Blood Count 8.6 K/mm3 (4.5-10.0)
[2020-03-09 07:05] LABS: Anion Gap 9 mmol/L (8-16); Blood Urea Nitrogen 16 mg/dL (7-17); Calcium 8.4 mg/dL (8.4-10.2); Carbon Dioxide 27 mmol/L (22-30); Chloride 101 mmol/L (98-107); Estimated CRCL calculation 41 ml/min; Estimated Glomerular Filt Rate 53; Glucose 94 mg/dL (65-105); Potassium 3.8 mmol/L (3.4-5.0); Sodium 137 mmol/L (137-145)
[2020-03-09] MEDS: CLINDAMYCIN HCL 150 MG CAP 300 MG PO (09:38)
[2020-03-09] MEDS: POTASSIUM CHLORIDE 20 MEQ TABLET.ER PO (09:38)
[2020-03-09] MEDS: ATORVASTATIN 10 MG TABLET PO (09:38)
[2020-03-09] MEDS: ASPIRIN 81 MG ENTERIC TABLET PO (09:39)
[2020-03-09] MEDS: FLUDROCORTISONE ACETATE 0.1 MG TABLET PO ×2 (09:39→17:47)
[2020-03-09] MEDS: ESCITALOPRAM OXALATE 10 MG TABLET 20 MG PO (09:39)
--- NOTE | 2020-03-09 10:29 | PM.CNCAR ---
Assessment and Plan Additional Plan 79-year-old lady with longstanding relatively profound orthostatic hypotension likely related to autonomic dysfunction in the setting of Parkinson's. Patient has been seen by physicians at [facility] for the last 20 years for this problem and is taking fludrocortisone twice daily. Midodrine was tried to treat this but apparently resulted in unacceptable hypertension which is not surprising. One might consider a modest dose of metoprolol to further treat this however the patient says she is fearful of taking any new medications. The most important recommendation is that this patient should not be unsupervised or allowed to get up out of bed or out of a chair without 1 on 1 supervision or assistance. I do not believe she is having syncope for any other reason and it does not appear that she needs any additional cardiac workup while she is here since this is been evaluated completely at [facility]. Yimi Anna MD [facility] History of Present Illness History of Present Illness Consult date/time: Date of service:03/09/20 10:29 Reason For Visit: Fall. Narrative: This is a 79-year-old lady I am seeing at the request of the hospitalist today to provide assistance with management of orthostatic hypotension. The patient states she does known to have quite severe orthostatic hypotension is been treated primarily for his physicians at [facility] for about 20 years or so. She states her physicians there have told her she has 1 of the worst cases of this that they have ever seen. She is felt to have to autonomic dysfunction as part of her Parkinson's syndrome and because of the she follows with neurologist set [facility]. she has had problematic symptomatic hypotension for a long time. Recently she was in the hospital here at [facility] twice in the last couple of days where she became hypotensive and fell out of her wheelchair striking the left side of her face on the ground and she has a facial / orbital fracture. After the 2nd fall she was admitted to the hospital. She takes fludrocortisone twice daily for this. The drug is prescribed 3 times daily but her neurologist at [facility] recently reduce the dose to twice daily. In the past she had been on midodrine for this but they indicated it caused such excessively high blood pressure that they were concerned at stopped it. She may have had a stroke/TIA because of 1 of these high blood pressure spikes. The patient's vital signs in the hospital here demonstrate relatively marked orthostasis with systolic pressures as high as 220 mmHg and is low is 86. In this setting we are seeing her in consultation. She is not aware of any other specific cardiac problems in the past. She is not reporting any syncopal episodes the consult to see me was for syncope the patient states that she does not typically lose consciousness when this happens she simply becomes profoundly lightheaded symptomatic hypotensive and takes falls. She states that her physicians at [facility] have told her that she has modest regurgitation of 1 of her cardiac valves but no other concerning cardiac pathology has been identified. Review of Systems Constitutional: Constitutional: Reports fatigue Eyes: Eyes: Reports as per HPI and Reports no additional eye complaints ENT: Reports system reviewed and no additional complaints, except as documented Cardiovascular: Cardiovascular: Reports as per HPI Respiratory: Respiratory: Reports no additional respiratory complaints Gastrointestinal: Gastrointestinal: Reports no additional gastrointestinal complaints Genitourinary: Genitourinary: Reports no additional female genitourinary complaints Musculoskeletal: Musculoskeletal: Reports no additional musculoskeletal complaints Integumentary/Breasts: Skin/Breast: Reports system reviewed and no additional complaints, except as docu Neurologic: Reports as per HPI Comments: Longstanding orthostat
[2020-03-09] MEDS: ACETAMINOPHEN 325 MG TABLET 650 MG PO (12:08)
--- NOTE | 2020-03-09 14:59 | P.DS_ITS ---
DS: Admitting Diagnosis Admitting Diagnosis Admitting Diagnosis: Fall. DS: Discharge Diagnosis Discharge Diagnosis (1) Recurrent falls: Code(s): R29.6 - Repeated falls Status: Acute Assessment and Plan: * Secondary to a combination of balance issues from her Parkinson's and probable orthostasis. * She denies syncopal episode, however I think it would be prudent to monitor overnight to rule out cardiac dysrhythmia. * Initiate fall precautions and consult PT/OT. __03/08/20 16:39 patient is 78-year-old female with history of frequent falls due to parkinson's, orthostatic hypotension and labile blood pressure. patient initially presented emergency department on 03/07 after she had fell from her w heelchair and landed on the left side of her face, imaging showed left maxillary fracture patient was discharged and then patient again fell and landed on the same left side of her face and is now being admitted further evaluation, we have started patient on clindamycin to prevent any infection to her maxillary fracture, patient has a significant history of orthostatic hypotension, patient is seen by accountant tax at [facility] but does not remember all details, will consult accountant tax and do cardiac echo for further evaluation, will have a PT OT evaluate the patient, monitor patient orthostatic, patient has history of Parkinson's most likely patient has a with autonomic dysfunction leading to hypotension will consult neurologist further recommendation, her son is present in the room answered all his questions (2) Left maxillary fracture: Code(s): S02.40DA - Maxillary fracture, left side, initial encounter for closed fracture Status: Acute Assessment and Plan: * CT today shows interval increase in hematoma, which the patient reports has improved since admission. * She will need follow-up with plastic surgery on discharge. started the patient on clindamycin to prevent any infection (3) Parkinsons: Code(s): G20 - Parkinson's disease Status: Acute Assessment and Plan: * Continue carbidopa levodopa. (4) Essential hypertension: Code(s): I10 - Essential (primary) hypertension Status: Acute Assessment and Plan: * Blood pressures were reviewed and they are in the 150s to 170s. * Given her repeated falls and orthostatic hypotension, she is no longer on an tihypertensives. * Will continue to monitor these closely as they seemed to be creeping up more recently * will consult neurology for further recommendation. (5) Chronic kidney disease, stage 3: Code(s): N18.3 - Chronic kidney disease, stage 3 (moderate) Status: Acute Assessment and Plan: * Creatinine is stable on review of previous labs. (6) Chronic anemia: Code(s): D64.9 - Anemia, unspecified Status: Acute Assessment and Plan: * Hemoglobin and hematocrit are stable on review of previous labs. (7) Hypothyroid: Code(s): E03.9 - Hypothyroidism, unspecified Status: Acute Assessment and Plan: * Continue levothyroxine and check TSH. DS: Summary Hospital Course Reason for hospita
--- NOTE | 2020-03-09 14:59 | PM.DS ---
DS: Admitting Diagnosis Admitting Diagnosis Admitting Diagnosis: Fall. DS: Discharge Diagnosis Discharge Diagnosis (1) Recurrent falls: Code(s): R29.6 - Repeated falls Status: Acute Assessment and Plan: Secondary to a combination of balance issues from her Parkinson's and probable orthostasis. She denies syncopal episode, however I think it would be prudent to monitor overnight to rule out cardiac dysrhythmia. Initiate fall precautions and consult PT/OT. __03/08/20 16:39 patient is 78-year-old female with history of frequent falls due to parkinson's, orthostatic hypotension and labile blood pressure. patient initially presented emergency department on 03/07 after she had fell from her wheelchair and landed on the left side of her face, imaging showed left maxillary fracture patient was discharged and then patient again fell and landed on the same left side of her face and is now being admitted further evaluation, we have started patient on clindamycin to prevent any infection to her maxillary fracture, patient has a significant history of orthostatic hypotension, patient is seen by dye stand loader at [facility] but does not remember all details, will consult dye stand loader and do cardiac echo for further evaluation, will have a PT OT evaluate the patient, monitor patient orthostatic, patient has history of Parkinson's most likely patient has a with autonomic dysfunction leading to hypotension will consult neurologist further recommendation, her son is present in the room answered all his questions (2) Left maxillary fracture: Code(s): S02.40DA - Maxillary fracture, left side, initial encounter for closed fracture Status: Acute Assessment and Plan: CT today shows interval increase in hematoma, which the patient reports has improved since admission. She will need follow-up with plastic surgery on discharge. started the patient on clindamycin to prevent any infection (3) Parkinsons: Code(s): G20 - Parkinson's disease Status: Acute Assessment and Plan: Continue carbidopa levodopa. (4) Essential hypertension: Code(s): I10 - Essential (primary) hypertension Status: Acute Assessment and Plan: Blood pressures were reviewed and they are in the 150s to 170s. Given her repeated falls and orthostatic hypotension, she is no longer on antihypertensives. Will continue to monitor these closely as they seemed to be creeping up more recently will consult neurology for further recommendation. (5) Chronic kidney disease, stage 3: Code(s): N18.3 - Chronic kidney disease, stage 3 (moderate) Status: Acute Assessment and Plan: Creatinine is stable on review of previous labs. (6) Chronic anemia: Code(s): D64.9 - Anemia, unspecified Status: Acute Assessment and Plan: Hemoglobin and hematocrit are stable on review of previous labs. (7) Hypothyroid: Code(s): E03.9 - Hypothyroidism, unspecified Status: Acute Assessment and Plan: Continue levothyroxine and check TSH. DS: Summary Hospital Course Reason for hospitalization: Chief complaint: Fall. Narrative: Jazmine Vasques is a 79-year-old female with Parkinson with autonomic dysfunction and history of frequent falls secondary to orthostatic hypotension who presented to the emergency department earlier today via EMS from her assisted living facility for evaluation after another fall. It is noted that she was seen in the emergency depart yesterday after she tripped an
== END 2020-03-09 18:50 ==
LOC: ANHED 12:00 → ANH3MED 14:18
PROVIDERS: Physician Assistant; Admitting Provider Internal Medicine; Emergency Provider Emergency Medicine; PCP Internal Medicine; Visit Provider Family Medicine
DX: I95.1 Orthostatic hypotension (principal); G20 Parkinson's disease; S02.40DA Maxillary fracture, left side, initial encounter for closed fracture; R29.6 Repeated falls; W05.0XXA Fall from non-moving wheelchair, initial encounter; I12.9 Hypertensive chronic kidney disease with stage 1 through stage 4 chronic kidney disease, or unspecified chronic kidney disease; N18.3 Chronic kidney disease, stage 3 (moderate); E03.9 Hypothyroidism, unspecified; D64.9 Anemia, unspecified; K58.9 Irritable bowel syndrome, unspecified; Z79.82 Long term (current) use of aspirin; Z79.899 Other long term (current) drug therapy; Z86.73 Personal history of transient ischemic attack (TIA), and cerebral infarction without residual deficits
CPT/HCPCS: 36415; 70450; 70486; 73521; 73560; 80048; 80053; 83735; 84443; 85025; 85027; 85610; 85730; 93306; 96365; 96375; 96376; 97110; 97161; 97165; 97535; 99285; A9270; G0378; J0131; J3010

== ENCOUNTER 2020-03-25 01:47 | Outpatient (CLI) | payer MEDICARE, BC, SELFPAY ==
[2020-03-25 19:20] LABS: SARS-CoV-2 RNA PCR Negative
== END 2020-03-25 01:48 | disposition home or self-care (01) ==
LOC: ANHCOVIDDT 01:48
PROVIDERS: Visit Provider Otolaryngology
DX: Z01.812 Encounter for preprocedural laboratory examination (principal); Z20.828 Contact with and (suspected) exposure to other viral communicable diseases
CPT/HCPCS: 87635; C9803; U0003

== ENCOUNTER 2020-03-27 02:23 | Day surgery (SDC) | payer MEDICARE, BC, SELFPAY ==
[2020-03-25 10:54] VITALS: BMI 21.2
--- NOTE | 2020-03-26 08:17 | PM.IMHP ---
H&P: HPI History of Present Illness Date/Time: 03/26/20 08:17 Chief complaint: Left Facial Hematoma Narrative: Jazmine Vasques is a 79 year old female Who status post fall several weeks ago with resulting left-sided malar hematoma. The shared decision was made to proceed to the operating room for incision and drainage of left facial hematoma. The patient reports no new changes symptoms and has held her aspirin for several days. 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 Chronic anemia Chronic back pain Chronic kidney disease, stage 3 Baseline creatinine between 1.1 and 1.20. Essential hypertension Hypothyroid Irritable bowel syndrome Mitral valve prolapse Orthostatic hypertension Parkinsons TIA (transient ischemic attack) Surgical History Surgical History (Updated 03/07/20 @ 14:31 by Merline Garcia PA-C) History of appendectomy History of cataract surgery History of cholecystectomy History of partial hysterectomy History of tonsillectomy Status post clamping of cerebral aneurysm Left frontal craniotomy with left parasellar aneurysm clipping in 2008. Social History Social History (Updated 03/07/20 @ 23:21 by Merline Garcia PA-C) Social History: Surrogate decision maker: Jordyn White, daughter. Code status: Full code at this time, patient states I don't know. Smoking status: Never smoker Alcohol intake: former Substance use: never Additional living arrangements comments: Assisted living at [facility] [place]. He she typically gets around with wheelchair, however it sounds as though she does not use a cane or a walker when transferring. 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 Gender identity (if verbalized by the patient): Female Spiritual care concerns: No Meds Home Medications and Allergies Home Medications Medication Instructions Recorded Confirmed Type aspirin [Aspir-81] 81 mg PO HS 01/28/20 03/25/20 History atorvastatin 10 mg PO HS 01/28/20 03/25/20 History carbidopa-levodopa 25 - 100 tablet PO TID 01/28/20 03/25/20 History escitalopram oxalate 20 mg PO HS 01/28/20 03/25/20 History fludrocortisone 0.1 mg PO TID 01/28/20 03/25/20 History levothyroxine 75 mcg PO DAILY 01/28/20 03/25/20 History potassium chloride 20 meq PO DAILY 01/28/20 03/25/20 History Allergies Allergy/AdvReac Type Severity Reaction Status Date / Time ciprofloxacin Allergy Unknown THROAT Verified 03/25/20 10:47 SWELLING codeine Allergy Unknown THROAT Verified 03/25/20 10:48 SWELLING/RASH gadobenic acid Allergy Unknown THROAT Verified 03/25/20 10:49 [From contrast - MRI] SWELLING iohexol Allergy Unknown THROAT Verified 03/25/20 10:49 [From contrast - CT, X-RAY] SWELLING Penicillins Allergy Unknown Hives / Verified 03/25/20 10:49 Red Face sulfamethoxazole Allergy Unknown THROAT Verified 03/25/20 10:50 SWELLING/HIVES tetracycline Allergy Unknown THROAT Verified 03/25/20 10:49 SWELLING trimethoprim Allergy Unknown THROAT Verified 03/25/20 10:50 SWELLILNG Contrast Media Allergy Unknown THROAT Uncoded 03/25/20 10:49 SWELLILNG Exam Narrative: Exam Narrative: exam is similar to previous H&P/clinic note Assessment and Plan Assessment and plan (1) Traumatic hematoma of face: Code(s): S00.83XA - Contusion of other part of head, initial encounter Status: Acute Assessment and Plan: plan is for the OR for incision and drainage of left facial hematoma. The risks and benefits were explained in great detail to the patient who voiced understanding and signed the appropriate consent forms. The risks in
[2020-03-27] VITALS (7 sets, daily range): BP systolic 129–177; BP diastolic 49–90; PULSE 52–71; RESP 10–20; TEMP 36.5–36.7; O2SAT 98–100; BMI 22.4
--- NOTE | 2020-03-27 06:25 | WPDANESEPPF ---
Anes - Initial Pre Proc Eval Procedure: Operation Date: 03/27/20 07:30 Proposed Procedures p Incision And Drainage Facial Hematoma - Cesar Garrido MD Date/Time: 03/27/20 06:25 Surgeon: Cesar Garrido MD Pre Op Diagnosis: Left Facial Hematoma Patient Data Age: 79 Gender: F Height: 5 ft 8 in Weight: 63.5 kg Allergies Allergy/AdvReac Type Severity Reaction Status Date / Time ciprofloxacin Allergy Unknown THROAT Verified 03/27/20 06:14 SWELLING codeine Allergy Unknown THROAT Verified 03/27/20 06:14 SWELLING/RASH gadobenic acid Allergy Unknown THROAT Verified 03/27/20 06:14 [From contrast - MRI] SWELLING iohexol Allergy Unknown THROAT Verified 03/27/20 06:14 [From contrast - CT, X-RAY] SWELLING Penicillins Allergy Unknown Hives / Verified 03/27/20 06:14 Red Face sulfamethoxazole Allergy Unknown THROAT Verified 03/27/20 06:14 SWELLING/HIVES tetracycline Allergy Unknown THROAT Verified 03/27/20 06:14 SWELLING trimethoprim Allergy Unknown THROAT Verified 03/27/20 06:14 SWELLILNG Contrast Media Allergy Unknown THROAT Uncoded 03/27/20 06:14 SWELLILNG Home Medications Medication Instructions Recorded Confirmed Type aspirin [Aspir-81] 81 mg PO HS 01/28/20 03/27/20 History atorvastatin 10 mg PO HS 01/28/20 03/27/20 History carbidopa-levodopa 25 - 100 tablet PO TID 01/28/20 03/27/20 History escitalopram oxalate 20 mg PO HS 01/28/20 03/27/20 History fludrocortisone 0.1 mg PO TID 01/28/20 03/27/20 History levothyroxine 75 mcg PO DAILY 01/28/20 03/27/20 History potassium chloride 20 meq PO DAILY 01/28/20 03/27/20 History Patient hx anesthesia problems: none Family hx anesthesia problems: none PMFSH Past Medical History Medical History Anxiety 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 Chronic anemia Chronic back pain Chronic kidney disease, stage 3 Baseline creatinine between 1.1 and 1.20. Essential hypertension Hypothyroid Irritable bowel syndrome Mitral valve prolapse Orthostatic hypertension Parkinsons TIA (transient ischemic attack) Surgical History Surgical History History of appendectomy History of cataract surgery History of cholecystectomy History of partial hysterectomy History of tonsillectomy Status post clamping of cerebral aneurysm Left frontal craniotomy with left parasellar aneurysm clipping in 2008. Family History Family History Mother COPD (chronic obstructive pulmonary disease) Lung cancer Sibling COPD (chronic obstructive pulmonary disease) Father Acute myocardial infarction Sibling Breast cancer Social History Social History Social History: Surrogate decision maker: Jordyn White, daughter. Code status: Full code at this time, patient states I don't know. Smoking status: Never smoker Alcohol intake: former Substance use: never Living arrangements: assisted living Additional living arrangements comments: Assisted living at [facility]. He she typically gets around with wheelchair, however it sounds as though she does not use a cane or a walker when transferring. 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 Gender identity (if verbalized by the patient): Female Spiritual care concerns: No Anes - Eval Final PreProcedure Day of Procedure 03/27/20 06:25 Patient weight: normal Heart: regular rate and rhythm Lungs: clear to auscultation Airway: Mallampati scale class II Neurological: alert and oriented Last oral intake: >/= 8 hours ASA classification: III Emergent: no Anesthetic plan: proceed Anesthesia type and monitoring: general ETT and standard monitoring Informed Consent: The patient's a
[2020-03-27] MEDS: LACTATED RINGERS 1,000 ML 30 ML IV CONT (06:40)
--- NOTE | 2020-03-27 07:00 | WPDHPUPDATE1 ---
History and Physical Update Update Date/Time: 03/27/20 07:00 History and Physical has been reviewed, including an updated exam of the patient. There are NO changes in the patient's condition. Risks, benefits, and alternatives have been discussed and questions answered. Patient agrees to proceed with procedure.
[2020-03-27] MEDS: CLINDAMYCIN 900 MG/NS 50 ML 900 MG/50 ML PIGGYBACK 50 MG IVPB ×2 (07:25)
[2020-03-27] MEDS: LIDO 1%/EPINEPHRINE 1:100,000 20 ML VIAL INFILTRATE (07:45)
--- NOTE | 2020-03-27 07:56 | P.OP_ITS ---
Procedure Note - Detailed Date of procedure: 03/27/20 Pre-op diagnosis: Left Facial Hematoma Post-op diagnosis: same Procedure performed: 1.Incision and drainage of left malar hematoma Description of procedure: The patient was correctly identified and consent was verified in the preoperative holding area. The patient was then brought to the operating room and a time-out was performed. General anesthesia was induced and an LMA was secured the patient's airway and moved to the right. The patient was then prepped and draped for the aforementioned procedures. 1 cc of 1% lidocaine with 1 100,000 parts epinephrine was injected under pre drawn surgical incision approximately 2 cm long. A 15 blade was then utilized to incise in a relaxed skin tension line and down to the hematoma. Combination of manual pressure as well as a 12 Guyanese suction were utilized to remove the hematoma. The face had a much more symmetric appearance with the hematoma was removed. 3 in 1/2 inch non iodinated packing were then placed within the incision/cavity. The site was covered with a sterile 4x4 gauze. this marked the end of the procedure, and care of the patient was turned over to Anesthesiology. I was present for and performed the entire procedure. Anesthesia: GLMA Surgeon: Cesar Garrido MD Estimated blood loss (mL): 5 Packing: Yes Pathology: none sent Complications: No immediate complications Condition: stable Disposition: PACU Findings: hematoma over the left malar eminence adequately removed packed and compressed
[2020-03-27] MEDS: ACETAMINOPHEN 325 MG TABLET 650 MG PO (08:51)
== END 2020-03-27 09:47 | disposition home or self-care (01) ==
PROVIDERS: Visit Provider Otolaryngology
PROC: (CPT 10140; principal; 2020-03-27 07:30)
DX: S00.83XA Contusion of other part of head, initial encounter (principal); W19.XXXA Unspecified fall, initial encounter; I12.9 Hypertensive chronic kidney disease with stage 1 through stage 4 chronic kidney disease, or unspecified chronic kidney disease; N18.3 Chronic kidney disease, stage 3 (moderate); F41.9 Anxiety disorder, unspecified; D63.1 Anemia in chronic kidney disease; E03.9 Hypothyroidism, unspecified; Z86.73 Personal history of transient ischemic attack (TIA), and cerebral infarction without residual deficits; I34.1 Nonrheumatic mitral (valve) prolapse; G20 Parkinson's disease; Z79.82 Long term (current) use of aspirin; Z79.899 Other long term (current) drug therapy
CPT/HCPCS: 10140; A9270; J2405; J2704; J3010; J7120

== ENCOUNTER 2020-04-20 11:02 | Emergency (ER) | payer MEDICARE, BC, SELFPAY ==
[2020-04-20 11:09] VITALS: BP 193/84; PULSE 75; RESP 20; TEMP 36.9; O2SAT 100
--- NOTE | 2020-04-20 11:59 | PC.NURSE ---
patient has been unable to void since she arrived. patient has been given water to drink.
[2020-04-20 12:41] VITALS: BP 160/80; PULSE 66; RESP 20; O2SAT 99
--- NOTE | 2020-04-20 16:31 | ED.FEMALEGU ---
HPI - Female Genitourinary General Chief complaint: Urogenital-Female Stated complaint: POS uti Source: patient and RN notes reviewed Mode of arrival: ambulatory Limitations: clinical condition History of Present Illness HPI Narrative: The patient, on several meds, presents with back pain and urinary changes. Patient brought in by daughter for couple day history of urinary frequency/nocturia and right-sided back discomfort. No fever, vomiting/diarrhea, hematuria/dysuria, vaginal itch or discharge; no radiating pain, increased numbness/weakness, known fall/injury. Surgical history remarkable for prior cholecystectomy and appendectomy; visit limited by patient parkinsonism and inability to to void. Discussed with daughter that will treat presumptively, however if patient not improved to go to hospital for higher level testing and treatment Related Data Home Medications Medication Instructions Recorded Confirmed aspirin [Aspir-81] 81 mg PO HS 01/28/20 04/20/20 atorvastatin 10 mg PO HS 01/28/20 04/20/20 carbidopa-levodopa 25 - 100 tablet PO TID 01/28/20 04/20/20 escitalopram oxalate 20 mg PO HS 01/28/20 04/20/20 levothyroxine 75 mcg PO DAILY 01/28/20 04/20/20 potassium chloride 20 meq PO DAILY 01/28/20 04/20/20 Allergies Allergy/AdvReac Type Severity Reaction Status Date / Time ciprofloxacin Allergy Unknown THROAT Verified 04/20/20 11:51 SWELLING codeine Allergy Unknown THROAT Verified 04/20/20 11:51 SWELLING/RASH gadobenic acid Allergy Unknown THROAT Verified 04/20/20 11:51 [From contrast - MRI] SWELLING iohexol Allergy Unknown THROAT Verified 04/20/20 11:51 [From contrast - CT, X-RAY] SWELLING Penicillins Allergy Unknown Hives / Verified 04/20/20 11:51 Red Face sulfamethoxazole Allergy Unknown THROAT Verified 04/20/20 11:51 SWELLING/HIVES tetracycline Allergy Unknown THROAT Verified 04/20/20 11:51 SWELLING trimethoprim Allergy Unknown THROAT Verified 04/20/20 11:51 SWELLILNG Contrast Media Allergy Unknown THROAT Uncoded 03/27/20 06:14 SWELLILNG Review of Systems Review of Systems: Narrative: General/Constitutional: No weight loss,fever Eyes: N0: Redness,discharge Ears/Nose/Throat: No: Epistaxis,ear discharge Respiratory: Denies: Hemoptysis Gastrointestinal: No Vomiting, Bleeding-rectal Skin: No Lumps, eruption Neurologic: No Focal Weakness,Sz Hematologic: Denies: Petechiae/Purpura Psychiatric: No: Suicida ideationl All Other Systems: Reviewed and Negative [facility] Past Medical History Medical History (Updated 04/27/20 @ 12:03 by Juan Ramirez MD) Anxiety 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 Chronic anemia Chronic back pain Chronic kidney disease, stage 3 Baseline creatinine between 1.1 and 1.20. Essential hypertension Hypothyroid Irritable bowel syndrome Mitral valve prolapse Orthostatic hypertension Parkinsons TIA (transient ischemic attack) Surgical History Surgical History History of appendectomy History of cataract surgery History of cholecystectomy History of partial hysterectomy History of tonsillectomy Status post clamping of cerebral aneurysm Left frontal craniotomy with left parasellar aneurysm clipping in 2008. Family History Family History Mother COPD (chronic obstructive pulmonary disease) Lung cancer Sibling COPD (chronic obstructive pulmonary disease) Father Acute myocardial infarction Sibling Breast cancer Social History Social History Social History: Surrogate decision maker: Jordyn White, daughter. Code status: Full code at this time, patient states I don't know. Smoking status: Never smoker Alcohol intake: former Substance use: never Additional living arrangements comments: Assisted living at [facility]
== END 2020-04-20 12:42 | disposition home or self-care (01) ==
PROVIDERS: Emergency Provider Emergency Medicine
DX: M54.6 Pain in thoracic spine (principal); Z79.82 Long term (current) use of aspirin; G20 Parkinson's disease; E78.00 Pure hypercholesterolemia, unspecified; I34.1 Nonrheumatic mitral (valve) prolapse; E03.9 Hypothyroidism, unspecified; F41.9 Anxiety disorder, unspecified; F32.9 Major depressive disorder, single episode, unspecified
CPT/HCPCS: 99213; G0463

== ENCOUNTER 2020-04-28 10:06 | Inpatient (IN) | payer MEDICARE, BC, SELFPAY ==
[2020-04-28] VITALS (59 sets, daily range): BP systolic 117–229; BP diastolic 45–114; PULSE 56–76; RESP 10–24; TEMP 36.4–36.8; O2SAT 95–100; BMI 21.9
--- NOTE | ~2020-04-28 | CT_ITS ---
EXAMINATION: CT cervical spine wo con DATE: 04/28/2020 13:00 INDICATION: Head injury post syncopal episode with fall. TECHNIQUE: Computed tomography (CT) of the cervical spine was performed without intravenous contrast. Automated exposure control and iterative reconstruction technique were employed. The dose-length pro duct was 170.50 mGy-cm. COMPARISON: 03/06/2020 FINDINGS: Straightening of the normal cervical lordosis. 2 mm anterolisthesis C7 on T1. Vertebral body heights are normal. No fracture. Moderate osteoarthritis at the atlantoaxial articulation. Moderate disc heig ht loss with degenerative endplate changes at C5-C6 and C6-C7. Mild disc height loss at C2-C3, C4-C5 and C7-T1. Visualized airway and apices of the lungs are clear. The following disc levels are specifi chelsea discussed: C2-C3: The disc does not extend beyond the endplate margin. There is mild bilateral uncovertebral bridgett nt osteoarthritis with bridging osteophytes at both the left and right sphenoid there is solid osseou s fusion across the bilateral facet joints. There is no neural foraminal stenosis. There is no centra l canal stenosis. C3-C4: The disc does not extend beyond the endplate margin. There is minimal bilateral uncovertebral joint osteoarthritis. There is severe bilateral facet joint osteoarthritis. There is mild right and m oderate left neural foraminal stenosis. There is no central canal stenosis. C4-C5: Disc is bulging. There is mild bilateral uncovertebral joint osteoarthritis. There is severe b ilateral facet joint osteoarthritis. There is mild left and minimal right neural foraminal stenosis. There is mild central canal stenosis. C5-C6: Posterior disc osteophyte complex. There is moderate right and severe left uncovertebral joint osteoarthritis. There is mild bilateral facet joint osteoarthritis. There is mild bilateral neural f oraminal stenosis. There is mild central canal stenosis. C6-C7: Disc osteophyte complex is present. There is severe bilateral uncovertebral joint osteoarthrit is. There is mild bilateral facet joint osteoarthritis. There is mild to moderate bilateral neural fo raminal stenosis. There is mild central canal stenosis. C7-T1: Disc is bulging. There is minimal bilateral uncovertebral joint osteoarthritis. There is sever e bilateral facet joint osteoarthritis. There is mild bilateral neural foraminal stenosis. There is m ild central canal stenosis. IMPRESSION: 1. Moderate cervical spondylosis. No acute osseous abnormality. Reviewed, dictated and finalized at location B.
--- NOTE | ~2020-04-28 | CT_ITS ---
EXAMINATION: CT brain wo con INDICATION: Head injury COMPARISON: 03/07/2020 TECHNIQUE: Standard unenhanced head CT. The dose-length product (DLP) was 605.33 mGy-cm. The mA was a djusted according to patient size. Iterative reconstruction technique was employed. FINDINGS: There is no acute intraparenchymal hemorrhage. No evidence of mass lesion. No evidence of a cute infarction. Again seen is chronic encephalomalacia in the left frontal and temporal lobes relate d to parasellar aneurysm clipping. There is mild periventricular and subcortical hypodensity probably related to small vessel ischemic disease. There is mild prominence of the sulci and ventricles relat ed to cerebral atrophy. Intracranial calcified cerebral atherosclerosis is noted. There are no extra- axial collections. There is no mass effect or midline shift. Changes in the globes are likely from oc ular lens surgery. There is a small left parietal scalp hematoma. Left frontal craniotomy is again n oted related to aneurysm clipping. There is persistent opacification of the left frontal sinus. IMPRESSION: 1. Small left parietal scalp hematoma without acute intracranial abnormality. 2. Chronic changes in the left frontal and temporal lobes related to aneurysm clipping. Reviewed, dictated and finalized at location A. IMPRESSION: 1. Small left parietal scalp hematoma without acute intracranial abnormality. 2. Chronic changes in the left frontal and temporal lobes related to aneurysm c lipping.
--- NOTE | 2020-04-28 10:15 | ECG_ITS ---
Measurements Intervals Blanca Rate: 62 P: -3 AK: 161 QRS: -28 QRSD: 102 T: 0 QT: 449 QTc: 458 Interpretive Statements SINUS RHYTHM VOLTAGE CRITERIA FOR LVH BORDERLINE T WAVE ABNORMALITY- INFERIOR LEADS BASELINE ARTIFACT- I, II, III, AVR, AVL, AVF, V1, V3-V6 BORDERLINE ECG Electronically Signed On 04-28-2020 10:22:37 CDT by Abdulaziz Montague D.O.
[2020-04-28 10:54] LABS: Basophils Absolute Auto 0.1 K/mm3 (0.0-0.1); Eosinophils Absolute Auto 0.1 K/mm3 (0-0.3); Eosinophils Percent Auto 1.2 % (0-4.4); Hematocrit 37.1 % (37.0-47.0); Hemoglobin 12.1 g/dL (12.0-15.0); Immature Granulocyte Absolute 0.03 K/mm3 (0.00-0.031); Immature Granulocyte Percent A 0.4 % (0-0.5); Lymphocytes Absolute Auto 1.51 K/mm3 (0.9-3.2); Lymphocytes Percent Auto 22.3 % (18.3-44.2); Mean Corpuscular HGB Conc 32.6 g/dl (32-36); Mean Corpuscular Hemoglobin 30.8 pg (26-34); Mean Corpuscular Volume 94.4 fl (80-100); Mean Platelet Volume 11.6 fl (7.4-10.4); Monocytes Absolute Auto 0.4 K/mm3 (0.1-0.6); Monocytes Percent Auto 5.5 % (2.6-8.5); Neutrophils Absolute Auto 4.7 K/mm3 (1.3-6.7); Neutrophils Percent Auto 69.6 % (45.5-73.1); Platelet Count Result 179 k/mm3 (150-375); Red Blood Count 3.93 M/mm3 (4.2-5.4); Red Cell Distribution Width 12.2 % (11.5-14.5); White Blood Count 6.8 K/mm3 (4.5-10.0)
[2020-04-28 11:07] LABS: Anion Gap 7 mmol/L (8-16); Blood Urea Nitrogen 25 mg/dL (7-17); Calcium 8.9 mg/dL (8.4-10.2); Carbon Dioxide 28 mmol/L (22-30); Chloride 103 mmol/L (98-107); Estimated CRCL calculation 27 ml/min; Estimated Glomerular Filt Rate 33; Glucose 133 mg/dL (65-105); Potassium 5.1 mmol/L (3.4-5.0); Sodium 138 mmol/L (137-145)
--- NOTE | 2020-04-28 12:22 | ED.GENADULT ---
HPI - General Adult General Chief complaint: Syncope Stated complaint: fall Time Seen by Provider: 04/28/20 10:18 Source: patient Mode of arrival: EMS Limitations: no limitations History of Present Illness HPI narrative: 80 years old white female presents with a fall and occipital laceration. Patient told me that she was trying to adjust HER wheel chair which was difficult then turned around and went all the way back forward landed on the floor the back of her head on the floor, denies loss of consciousness. Patient reports history of intermittent of balance, shaking in the fall. Last fall was 3 weeks ago. Currently patient denying any complaint except I want to remove my cervical c-collar. Patient denies any fever, chills, nausea, vomiting, chest pain, back pain, sore throat, headache, urinary symptoms or abdominal pain. History of orthostatic hypotension and parkinsonism Related Data Home Medications Medication Instructions Recorded Confirmed aspirin [Aspir-81] 81 mg PO HS 01/28/20 04/20/20 atorvastatin 10 mg PO HS 01/28/20 04/20/20 carbidopa-levodopa 25 - 100 tablet PO TID 01/28/20 04/20/20 escitalopram oxalate 20 mg PO HS 01/28/20 04/20/20 levothyroxine 75 mcg PO DAILY 01/28/20 04/20/20 potassium chloride 20 meq PO DAILY 01/28/20 04/20/20 Allergies Allergy/AdvReac Type Severity Reaction Status Date / Time ciprofloxacin Allergy Unknown THROAT Verified 04/28/20 10:23 SWELLING codeine Allergy Unknown THROAT Verified 04/28/20 10:23 SWELLING/RASH gadobenic acid Allergy Unknown THROAT Verified 04/28/20 10:23 [From contrast - MRI] SWELLING iohexol Allergy Unknown THROAT Verified 04/28/20 10:23 [From contrast - CT, X-RAY] SWELLING Penicillins Allergy Unknown Hives / Verified 04/28/20 10:23 Red Face sulfamethoxazole Allergy Unknown THROAT Verified 04/28/20 10:23 SWELLING/HIVES tetracycline Allergy Unknown THROAT Verified 04/28/20 10:23 SWELLING trimethoprim Allergy Unknown THROAT Verified 04/28/20 10:23 SWELLILNG Contrast Media Allergy Unknown THROAT Uncoded 03/27/20 06:14 SWELLILNG Review of Systems Review of Systems: Narrative: CONSTITUTIONAL: Denies fever, chills, or sweats. EYES: Denies visual changes, redness, or discharge. ENT: Denies rhinorrhea, congestion, sore throat, or otalgia. CARDIOVASCULAR: Denies chest pain, palpitations, or edema. RESPIRATORY: Denies cough or dyspnea. GASTROINTESTINAL: Denies abdominal pain, nausea, vomiting, or diarrhea. GENITOURINARY: Denies dysuria or hematuria. SKIN: Denies rash or itching. MUSCULOSKELETAL: Denies back pain, joint pain, or myalgia. NEUROLOGIC: Denies headache, numbness, or weakness. PSYCHIATRIC: Denies anxiety or depression. 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 Chronic anemia Chronic back pain Chronic kidney disease, stage 3 Baseline creatinine between 1.1 and 1.20. Essential hypertension Hypothyroid Irritable bowel syndrome Mitral valve prolapse Orthostatic hypertension Parkinsons TIA (transient ischemic attack) Surgical History Surgical History History of appendectomy History of cataract surgery History of cholecystectomy History of partial hysterectomy History of tonsillectomy Status post clamping of cerebral aneurysm Left frontal craniotomy with left parasellar aneurysm clipping in 2009. Family History Family History Mother COPD (chronic obstructive pulmonary disease) Lung cancer Sibling COPD (chronic obstructive pulmonary disease) Father Acute myocardial infarction Sibling Breast cancer Social History Social History Social History: Surrogate decision maker: Jordyn Christopher, daughter. Code status: Full code
[2020-04-28] MEDS: TETANUS,DIPHTHERIA,AC PERTUSSIS ADULT (0.5 ML) BOOSTRIX IM (12:36)
--- NOTE | 2020-04-28 13:26 | PC.NURSE ---
c collar removed. awaiting dispo.
[2020-04-28 14:20] LABS: Add Urine Microscopic? YES; Appearance Urine Cloudy (Clear); Bacteria Urine 4+ /hpf; Bilirubin Urine Negative (Negative); Blood Urine 2+ (Negative); Color Urine Yellow (Yellow); Glucose Urine UA Negative (Negative); Ketones Urine Negative (Negative); Leukocyte Esterase Ur 3+ LEU/UL (Negative); Mucus Urine Rare /lpf; Nitrate Urine Positive (Negative); Protein Urine Negative (Negative); Specific Grav Ur 1.016 (1.001-1.035); Squamous Epithelial Cell Urine Moderate /hpf (Few); Transitional Epi Cells Urine Rare /hpf (None Seen); Urobilinogen Urine Negative mg/dL (<2.0); WBC Clumps Urine Present /HPF; WBC Urine >75 /hpf
[2020-04-28] MEDS: SODIUM CHLORIDE 0.9% IV 1,000 ML 999 ML IV CONT (14:25)
--- NOTE | 2020-04-28 17:06 | PC.NURSE ---
This patient, Jazmine Vasques, was admitted to Medical Room 342-01. Patient/family oriented to hospital policies and general routines including ID bracelet, bed and alarms, visiting hours, pain management, procedures, bathroom and other care routines, personal items, smoking policy, room service/diet, and visiting hours. Valuables list has been completed. Information on how to activate the Rapid Response Team has been discussed. Patient/Family are encouraged to report perceived risks to care and to ask questions if they do not understand what they are told or what they should do.
[2020-04-28] MEDS: LACTATED RINGERS 1,000 ML 50 ML IV CONT (17:24)
--- NOTE | 2020-04-28 23:27 | PM.IMHP ---
H&P: HPI History of Present Illness Date/Time: 04/28/20 23:27 Chief complaint: orthostatic hypotention/uti Narrative: Jazmine Vasques is a 80 year old femaleWho resides at [facility] by herself. The patient had a fall today. The patient was trying to adjust her wheelchair and was very difficult to turn around and went all the way back and forward and landed on the floor she had the back of her head. The patient told me that when she was standing at she felt lightheaded and fell. She told me that it was from moving positions. She last fell about 3 weeks ago. The patient did have a hematoma that was evacuated from her left side of her face over 3 weeks ago. Today the patient has a laceration to her occipital area and 1 staple was applied. Patient has a history of orthostatic hypotension and Parkinson's. On 03/27/2020 she had incision and drainage of facial hematoma per Dr. Garrido and this was a result of a fall. The CT of the head was read as small left parietal scalp hematoma without acute intracranial abnormality. Chronic changes a left frontal and temporal lobes related to aneurysm clipping. CT of the cervical spine showed moderate cervical spondylosis no acute osseous abnormality. Potassium slightly elevated 5.1. Creatinine 1.5. Urine once again was found to be positive for UTI. The patient stated that she recently had taken antibiotics for her UTI in just finished them. Urine culture from 03/06 showed normal genitalia bacteria. The patient was given a tetanus shot. IV fluids Tylenol and started on Rocephin for UTI. Patient once again was found to be very orthostatic hypotensive. The patient was admitted inpatient to medical floor on the date of service 04/28/2020 Review of Systems Review of Systems: All systems reviewed & are unremarkable except as noted in HPI and below Constitutional: Constitutional: Reports as per HPI and Reports no additional constitutional complaints Eyes: Eyes: Reports as per HPI and Reports no additional eye complaints ENT: Reports system reviewed and no additional complaints, except as documented and Reports Normal hearing present Cardiovascular: Cardiovascular: Reports no additional cardiovascular complaints Respiratory: Respiratory: Reports no additional respiratory complaints and Reports no additional respiratory complaints Gastrointestinal: Gastrointestinal: Reports as per HPI and Reports no additional gastrointestinal complaints Musculoskeletal: Musculoskeletal: Reports no additional musculoskeletal complaints Integumentary/Breasts: Skin/Breast: Reports system reviewed and no additional complaints, except as docu and Reports as per HPI Neurologic: Reports system reviewed and no additional complaints, except as documented, Reports as per HPI and Reports Normal hearing present Psychiatric: Psychiatric: Reports no additional psychiatric complaints and Reports as per HPI Endocrine: Endocrine: Reports no additional endocrine complaints Hematologic/Lymphatic: Hematologic/Lymphatic: Reports no additional hematologic/lymphatic complaints Allergic/Immunologic: Allergic/Immunologic: Reports no additional allergic/immunologic complaints [facility]LY [facility] Past Medical History Medical History (Updated 04/28/20 @ 23:32 by Verito Hooks NP) Anxiety 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 Chronic anemia Chronic back pain Chronic kidney disease, stage 3 Baseline creatinine between 1.1 and 1.20. Essential hypertension Hypothyroid Irritable bowel syndrome diarrhea Mitral valve prolapse Orthostatic hypertension Parkinsons TIA (transient ischemic attack) Surgical History Surgical History History of appendectomy History of cataract surgery History of cholecystectomy History of partial hysterectomy History of tonsillectomy Status post clamping of cerebral aneurysm Left frontal craniotomy with le
[2020-04-29] VITALS (7 sets, daily range): BP systolic 123–217; BP diastolic 53–100; PULSE 48–67; RESP 14–16; TEMP 35.8–36.7; O2SAT 98–100
[2020-04-29] MEDS: CARBIDOPA/LEVODOPA 12.5/50 MG TABLET 1 TABLET PO ×4 (00:22→16:56)
[2020-04-29] MEDS: CARBIDOPA/LEVODOPA 25/100 MG TABLET 1 TABLET PO ×4 (00:22→16:56)
[2020-04-29] MEDS: LEVOTHYROXINE SODIUM 75 MCG TABLET PO (05:53)
[2020-04-29 06:32] LABS: Basophils Absolute Auto 0.1 K/mm3 (0.0-0.1); Basophils Percent Auto 0.9 % (0.2-1.2); Eosinophils Absolute Auto 0.1 K/mm3 (0-0.3); Hematocrit 37.3 % (37.0-47.0); Hemoglobin 12.1 g/dL (12.0-15.0); Immature Granulocyte Absolute 0.02 K/mm3 (0.00-0.031); Immature Granulocyte Percent A 0.3 % (0-0.5); Lymphocytes Absolute Auto 1.76 K/mm3 (0.9-3.2); Lymphocytes Percent Auto 25.4 % (18.3-44.2); Mean Corpuscular HGB Conc 32.4 g/dl (32-36); Mean Corpuscular Hemoglobin 29.8 pg (26-34); Mean Corpuscular Volume 91.9 fl (80-100); Mean Platelet Volume 11.3 fl (7.4-10.4); Monocytes Absolute Auto 0.4 K/mm3 (0.1-0.6); Monocytes Percent Auto 6.1 % (2.6-8.5); Neutrophils Absolute Auto 4.5 K/mm3 (1.3-6.7); Neutrophils Percent Auto 65.3 % (45.5-73.1); Platelet Count Result 181 k/mm3 (150-375); Red Blood Count 4.06 M/mm3 (4.2-5.4); White Blood Count 6.9 K/mm3 (4.5-10.0)
[2020-04-29 06:45] LABS: Albumin Level 3.8 g/dL (3.5-5.1); Alkaline Phosphatase 65 U/L (38-126); Anion Gap 5 mmol/L (8-16); Aspartate Amino Transferase 23 U/L (14-36); Blood Urea Nitrogen 18 mg/dL (7-17); Calcium 8.7 mg/dL (8.4-10.2); Carbon Dioxide 29 mmol/L (22-30); Chloride 104 mmol/L (98-107); Estimated CRCL calculation 40 ml/min; Estimated Glomerular Filt Rate 53; Glucose 90 mg/dL (65-105); Potassium 4.5 mmol/L (3.4-5.0); Sodium 138 mmol/L (137-145)
[2020-04-29 06:52] LABS: Alanine Aminotransferase < 4 U/L (4-35)
[2020-04-29] MEDS: CHOLECALCIFEROL 1,000 UNITS TABLET 2000 UNITS PO (08:09)
[2020-04-29] MEDS: ESCITALOPRAM OXALATE 10 MG TABLET 20 MG PO (08:09)
--- NOTE | 2020-04-29 10:54 | PM.IMPN ---
Progress Note: A&P Assessment and Plan (1) Orthostatic hypotension: Code(s): I95.1 - Orthostatic hypotension Status: Acute Assessment and Plan: Patient has a longstanding history of orthostatic hypotension for which she follows up with a specialist at [place]. She recently was seen at [place] and they discontinued her Fludrocortisone and started a new medication Northera 100 mg Monday (04/24/2020). She is suppose to take this medication once daily for 1 week, then AM & PM for 1 week, then TID to help with orthostatic hypotension with patient with Parkinson's Disease. Will have the patient's daughter bring this new medications we can have her continue taking it. We started IV fluids and Claudio hose to trying help with her orthostatics Cardiology was consulted who have seen her in the past and were able to get these records from [facility] about her recent medication changes. It is recommended that she does not get up out of the chair or from bed without assistance herself is very unsafe and could cause syncope or another fall and worsening issues. Continue monitoring. Continue checking orthostatics once per shift. Cardiology's input is greatly appreciated. (2) Urinary tract infection: Qualifiers: Hematuria presence: without hematuria Urinary tract infection type: site unspecified Qualified Code(s): N39.0 - Urinary tract infection, site not specified Code(s): N39.0 - Urinary tract infection, site not specified Status: Acute Assessment and Plan: Patient was just on antibiotics, Macrobid from the until the 13 for UTI that was diagnose at urgent care. Urinalysis does appear to be an infection and patient does report having symptoms of frequent urination. Pending urine cultures at this time. Will continue IV ceftriaxone Continue monitoring. (3) Laceration of scalp: Qualifiers: Encounter type: subsequent encounter Qualified Code(s): S01.01XD - Laceration without foreign body of scalp, subsequent encounter Code(s): S01.01XA - Laceration without foreign body of scalp, initial encounter Status: Acute Assessment and Plan: The patient received 1 suture to the back of her head where she fell and hit her head. CT scan was obtained and shows nothing acute. (4) Hypothyroid: Code(s): E03.9 - Hypothyroidism, unspecified Status: Acute Assessment and Plan: Continue with patient's home dose of levothyroxine. Last month her levels are within normal limits. (5) Chronic anemia: Code(s): D64.9 - Anemia, unspecified Status: Acute Assessment and Plan: Patient is actually above her usual baseline this could be due to dehydration. Could be hemodilutional. No recent to further evaluate at this time. She has no acute signs of bleeding. (6) Chronic kidney disease, stage 3: Code(s): N18.3 - Chronic kidney disease, stage 3 (moderate) Status: Acute Assessment and Plan: Chronic. Most likely stage III. Patient's creatinine on arrival was 1.5 and improved to 1.0 today which is within normal limits. Will discontinue IV fluids at this time since she is euvolemic and recheck labs in the morning. (7) Essential hypertension: Code(s): I10 - Essential (primary) hypertension Status: Acute Assessment and Plan: See above under Orthostatic hypotension. Continue on home medications. (8) Recurrent falls: Code(s): R29.6 - Repeated falls Status: Acute Assessment and Plan: PT and OT have been ordered since she will be returning back to an assisted
--- NOTE | 2020-04-29 12:15 | PM.CNCAR ---
Assessment and Plan Additional Plan 80-year-old woman with chronic problematic orthostatic hypotension. As I mentioned in my last couple of notes this is being managed by her physicians at [facility]. She was taken off of Florinef several days ago by this physician and placed on alternative medication which I would recommend us try to identify and provide to her while she is here. Since this medication was just started several days ago I do not believe it is necessary or prudent to adjust things this soon. It is extremely important that this lady maintain a good state of hydration and is even more important that she does not get out of a chair or up from bed without assistance. It is obvious that this type of orthostasis is going to be a chronic issue for her and it is unsafe for her to attempt to get up by herself. Yimi Anna MD [facility] History of Present Illness History of Present Illness Consult date/time: 04/29/20 12:15 Consult reason: hypotension Reason For Visit: orthostatic hypotention/uti Narrative: this is an 80-year-old woman I am seeing at the request of the hospitalist because of orthostatic hypotension that has been problematic for her for quite a long time. I saw this lady for the exact same problem the 3rd week of February. I will not reiterate everything that is in that note the reader is referred to that note for those details. In short the patient has a longstanding history Parkinson's disease and as part of that she has significant autonomic dysfunction and chronic orthostatic hypotension. She is managed by physicians downtown at [facility] she has a neurologist who is primarily involved with making these decisions. When I saw the patient in February she was problematically orthostatic she had been taking fludrocortisone primarily for this with improvement but still symptomatic orthostasis. She has been taking falls when she gets up out of a bed or out of a chair into a standing position at that time her chart indicated they had tried giving her midodrine in the past in addition to the fludrocortisone but she became unacceptably hypertensive. At rest during that hospitalization and this 1 she has supine systolic blood pressures at times over 200 mmHg. In addition to that she will have symptomatic orthostasis with drop in her systolic blood pressure in the vicinity of 100 mmHg. At that time I recommended attempting adding a beta-leonardo such as metoprolol to the regimen which sometimes is quite helpful in this type of situation the patient however did not wish to take any new medications. We had no other recommendations. Between then in this admission her physician at [facility] has stopped her fludrocortisone and placed her on alternative medication the identity of which is unknown to me at the time of this dictation. Apparently this is some sort of new medication which is very expensive as she had to have significant efforts being put forth between her physicians there and the drug company to make the drug affordable. In any event she resides at an assisted living facility and had another fall when she was trying to get up out of a chair unassisted and had a scalp laceration was brought back in here to [facility] in the same setting am seeing her in consultation again today. There are no other new medical or health issues identified in the chart. Review of Systems Constitutional: Constitutional: Reports no additional constitutional complaints Eyes: Eyes: Reports no additional eye complaints ENT: Reports system reviewed and no additional complaints, except as documented Cardiovascular: Cardiovascular: Reports as per HPI Respiratory: Respiratory: Reports no additional respiratory complaints Gastrointestinal: Gastrointestinal: Reports no additional gastrointestinal complaints Musculoskeletal: Musculoskeletal: Reports no additional musculoskeletal complaints Integumentary/Breasts: Ski
[2020-04-29] MEDS: LACTATED RINGERS 1,000 ML 50 ML IV CONT (14:07)
--- NOTE | 2020-04-29 19:42 | PHAR ---
Droxidopa (Northera) 100mg capsule seen in pharmacy and returned to 3 medical nursing unit
[2020-04-29] MEDS: ASPIRIN 81 MG ENTERIC TABLET PO (20:16)
[2020-04-30] VITALS (9 sets, daily range): BP systolic 74–216; BP diastolic 52–90; PULSE 48–82; RESP 16–18; TEMP 36.2–36.6; O2SAT 98–100
--- NOTE | 2020-04-30 05:04 | PC.NURSE ---
We had to sit the pt down senior care through doing ortho vitals. Pt was unable to stand long enough to get a accurate reading
[2020-04-30] MEDS: LEVOTHYROXINE SODIUM 75 MCG TABLET PO (05:53)
[2020-04-30 06:22] LABS: Anion Gap 4 mmol/L (8-16); Blood Urea Nitrogen 17 mg/dL (7-17); Calcium 8.4 mg/dL (8.4-10.2); Carbon Dioxide 30 mmol/L (22-30); Chloride 104 mmol/L (98-107); Estimated CRCL calculation 40 ml/min; Estimated Glomerular Filt Rate 53; Glucose 91 mg/dL (65-105); Potassium 4.5 mmol/L (3.4-5.0); Sodium 138 mmol/L (137-145)
[2020-04-30] MEDS: ESCITALOPRAM OXALATE 10 MG TABLET 20 MG PO (08:10)
[2020-04-30] MEDS: CHOLECALCIFEROL 1,000 UNITS TABLET 2000 UNITS PO (08:11)
[2020-04-30] MEDS: CARBIDOPA/LEVODOPA 25/100 MG TABLET 1 TABLET PO ×3 (08:12→16:13)
[2020-04-30] MEDS: CARBIDOPA/LEVODOPA 12.5/50 MG TABLET 1 TABLET PO ×3 (08:12→16:13)
--- NOTE | 2020-04-30 10:00 | PM.IMPN ---
Progress Note: A&P Assessment and Plan (1) Orthostatic hypotension: Code(s): I95.1 - Orthostatic hypotension Status: Acute Assessment and Plan: Patient has a longstanding history of orthostatic hypotension for which she follows up with a specialist at [place]. She recently was seen at [facility] and they discontinued her Fludrocortisone and started a new medication Northera 100 mg Monday (04/24/2020). She is suppose to take this medication once daily for 1 week, then AM & PM for 1 week, then TID to help with orthostatic hypotension with patient with Parkinson's Disease. Will have the patient's daughter bring this new medication (Northera) so we can have her continue taking it. We started IV fluids initially and she is well hydrated at this time and it was discontinued. Claudio chávez ordered to trying help with her orthostatics Cardiology was consulted who have seen her in the past and were able to get these records from [facility] about her recent medication changes. Cardiology recommends that she does not get up out of the chair or from bed without assistance because it is very unsafe and could cause syncope or another fall and worsening issues. At this time there is nothing else to do about her orthostatic hypotension except continue on the new treatment regimen from her [facility] physician and make sure she has assistance with getting up and moving around. Will have her continue working with therapy to see what is best for her after discharge and if she can return to her assisted living facility if she would need a retirement rehab We are pending a COVID test tonight and how she does with therapy as to where she can return Continue monitoring. Continue checking orthostatics once per shift. Cardiology's input is greatly appreciated. (2) Urinary tract infection: Qualifiers: Hematuria presence: without hematuria Urinary tract infection type: site unspecified Qualified Code(s): N39.0 - Urinary tract infection, site not specified Code(s): N39.0 - Urinary tract infection, site not specified Status: Acute Assessment and Plan: Patient was just on antibiotics, Macrobid from the until the 13 for UTI that was diagnose at urgent care. Urinalysis does appear to be an infection and patient does report having symptoms of frequent urination. Urine culture grew Klebsiella pneumoniae to Macrobid which is why this treatment did not work as an outpatient. It is sensitive to ceftriaxone so we will continue IV ceftriaxone while she is here and discharged on oral cefdinir 1 she is stable for discharge. Continue monitoring. (3) Diarrhea: Code(s): R19.7 - Diarrhea, unspecified Status: Acute Assessment and Plan: They told me that the patient started had 3 bowel movements this morning in states they are kind of watery in nature and she is concerned for possible C diff. I will send off stool cultures at this time along with C diff testing for further evaluation and start her on some probiotics with her being on IV antibiotics at this time. (4) Laceration of scalp: Qualifiers: Encounter type: subsequent encounter Qualified Code(s): S01.01XD - Laceration without foreign body of scalp, subsequent encounter Code(s): S01.01XA - Laceration without foreign body of scalp, initial encounter Status: Acute Assessment and Plan: The patient received 1 suture to the back of her head where she fell and hit her head. CT scan was obtained and shows nothing acute. (5) Hypothyroid: Code(s): E03.9 - Hypothyroidism, unspecified Status: Acute Assessment and Plan: Continue with patient's home dose of levothyroxine. Last month her levels are within normal limits. __
[2020-04-30] MEDS: SACCHAROMYCES BOULARDII 250 MG CAPSULE PO ×3 (11:38→16:13)
[2020-04-30] MEDS: ASPIRIN 81 MG ENTERIC TABLET PO (21:08)
[2020-05-01] VITALS (7 sets, daily range): BP systolic 92–223; BP diastolic 42–89; PULSE 53–111; RESP 14–17; TEMP 36.2–36.8; O2SAT 97–100; BMI 10.0
[2020-05-01] MEDS: LEVOTHYROXINE SODIUM 75 MCG TABLET PO (05:44)
[2020-05-01 06:44] LABS: Anion Gap 5 mmol/L (8-16); Blood Urea Nitrogen 15 mg/dL (7-17); Calcium 8.5 mg/dL (8.4-10.2); Carbon Dioxide 31 mmol/L (22-30); Chloride 102 mmol/L (98-107); Estimated CRCL calculation 40 ml/min; Estimated Glomerular Filt Rate 53; Glucose 91 mg/dL (65-105); Potassium 4.5 mmol/L (3.4-5.0); Sodium 138 mmol/L (137-145)
[2020-05-01] MEDS: CARBIDOPA/LEVODOPA 25/100 MG TABLET 1 TABLET PO ×3 (09:24→17:08)
[2020-05-01] MEDS: ESCITALOPRAM OXALATE 10 MG TABLET 20 MG PO (09:24)
[2020-05-01] MEDS: SACCHAROMYCES BOULARDII 250 MG CAPSULE PO ×3 (09:25→17:08)
[2020-05-01] MEDS: CHOLECALCIFEROL 1,000 UNITS TABLET 2000 UNITS PO (09:25)
[2020-05-01] MEDS: CARBIDOPA/LEVODOPA 12.5/50 MG TABLET 1 TABLET PO ×3 (09:25→17:08)
[2020-05-01 14:12] LABS: SARS-CoV-2 RNA PCR Negative
--- NOTE | 2020-05-01 16:33 | PM.DS ---
DS: Admitting Diagnosis Admitting Diagnosis Admitting Diagnosis: orthostatic hypotention/uti DS: Discharge Diagnosis Discharge Diagnosis (1) Orthostatic hypotension: Code(s): I95.1 - Orthostatic hypotension Status: Acute Assessment and Plan: Patient has a longstanding history of orthostatic hypotension for which she follows up with a specialist at [place]. She recently was seen at [place] and they discontinued her Fludrocortisone and started a new medication Northera 100 mg Monday (04/24/2020). She is suppose to take this medication once daily for 1 week, then AM & PM for 1 week, then TID to help with orthostatic hypotension with patient with Parkinson's Disease. Will have the patient's daughter bring this new medication (Northera) so we can have her continue taking it. We started IV fluids initially and she is well hydrated at this time and it was discontinued. Claudio chávez ordered to trying help with her orthostatics Cardiology was consulted who have seen her in the past and were able to get these records from [facility] about her recent medication changes. Cardiology recommends that she does not get up out of the chair or from bed without assistance because it is very unsafe and could cause syncope or another fall and worsening issues. At this time there is nothing else to do about her orthostatic hypotension except continue on the new treatment regimen from her [place] physician and make sure she has assistance with getting up and moving around. Will have her continue working with therapy to see what is best for her after discharge and if she can return to her assisted living facility if she would need a snf rehab We are pending a COVID test tonight and how she does with therapy as to where she can return Continue monitoring. Continue checking orthostatics once per shift. Cardiology's input is greatly appreciated. (2) Urinary tract infection: Qualifiers: Hematuria presence: without hematuria Urinary tract infection type: site unspecified Qualified Code(s): N39.0 - Urinary tract infection, site not specified Code(s): N39.0 - Urinary tract infection, site not specified Status: Acute Assessment and Plan: Patient was just on antibiotics, Macrobid from the until the for UTI that was diagnose at urgent care. Urinalysis does appear to be an infection and patient does report having symptoms of frequent urination. Urine culture grew Klebsiella pneumoniae to Macrobid which is why this treatment did not work as an outpatient. It is sensitive to ceftriaxone so we will continue IV ceftriaxone while she is here and discharged on oral cefdinir 1 she is stable for discharge. Continue monitoring. (3) Diarrhea: Code(s): R19.7 - Diarrhea, unspecified Status: Acute Assessment and Plan: They told me that the patient started had 3 bowel movements this morning in states they are kind of watery in nature and she is concerned for possible C diff. I will send off stool cultures at this time along with C diff testing for further evaluation and start her on some probiotics with her being on IV antibiotics at this time. (4) Laceration of scalp: Qualifiers: Encounter type: subsequent encounter Qualified Code(s): S01.01XD - Laceration without foreign body of scalp, subsequent encounter Code(s): S01.01XA - Laceration without foreign body of scalp, initial encounter Status: Acute Assessment and Plan: The patient received 1 suture to the back of her head where she fell and hit her head. CT scan was obtained and shows nothing acute. (5) Hypothyroid: Code(s): E03.9 - Hypothyroidism, unspecified Status: Acute Assessment and Plan: Enzo
--- NOTE | 2020-05-01 16:43 | PM.IMPN ---
Progress Note: A&P Assessment and Plan (1) Diarrhea: Code(s): R19.7 - Diarrhea, unspecified Status: Acute Assessment and Plan: They told me that the patient started had 3 bowel movements this morning in states they are kind of watery in nature and she is concerned for possible C diff. She had another 3 bowel movements today. Stool cultures were sent along with C diff testing, pending results and once negative she can be discharged to [facility] (2) Orthostatic hypotension: Code(s): I95.1 - Orthostatic hypotension Status: Acute Assessment and Plan: Patient has a longstanding history of orthostatic hypotension for which she follows up with a specialist at [place]. She recently was seen at [place] and they discontinued her Fludrocortisone and started a new medication Northera 100 mg Monday (04/24/2020). She is suppose to take this medication once daily for 1 week, then AM & PM for 1 week, then TID to help with orthostatic hypotension with patient with Parkinson's Disease. Will have the patient's daughter bring this new medication (Northera) so we can have her continue taking it. We started IV fluids initially and she is well hydrated at this time and it was discontinued. Claudio chávez ordered to trying help with her orthostatics Cardiology was consulted who have seen her in the past and were able to get these records from [facility] about her recent medication changes. Cardiology recommends that she does not get up out of the chair or from bed without assistance because it is very unsafe and could cause syncope or another fall and worsening issues. At this time there is nothing else to do about her orthostatic hypotension except continue on the new treatment regimen from her [place] physician and make sure she has assistance with getting up and moving around. Will have her continue working with therapy to see what is best for her after discharge and if she can return to her assisted living facility if she would need a alf rehab COVID test was negative. She was accepted into [facility] for further PT/OT to prevent falls. Pending discharged due to diarrhea, to rule out C. diff caused by antibiotics. Continue monitoring. Continue checking orthostatics once per shift. Cardiology's input is greatly appreciated. (3) Urinary tract infection: Qualifiers: Hematuria presence: without hematuria Urinary tract infection type: site unspecified Qualified Code(s): N39.0 - Urinary tract infection, site not specified Code(s): N39.0 - Urinary tract infection, site not specified Status: Acute Assessment and Plan: Patient was just on antibiotics, Macrobid from the until the for UTI that was diagnose at urgent care. Urinalysis does appear to be an infection and patient does report having symptoms of frequent urination. Urine culture grew Klebsiella pneumoniae to Macrobid which is why this treatment did not work as an outpatient. It is sensitive to ceftriaxone so we will continue IV ceftriaxone while she is here and discharged on oral cefdinir 1 she is stable for discharge. Continue monitoring. (4) Laceration of scalp: Qualifiers: Encounter type: subsequent encounter Qualified Code(s): S01.01XD - Laceration without foreign body of scalp, subsequent encounter Code(s): S01.01XA - Laceration without foreign body of scalp, initial encounter Status: Acute Assessment and Plan: The patient received 1 suture to the back of her head where she fell and hit her head. CT scan was obtained and shows nothing acute. (5) Hypothyroid: Code(s): E03.9 - Hypothyroidism, unspecified Status: Acute Assessment and Plan: Cont
[2020-05-01] MEDS: ASPIRIN 81 MG ENTERIC TABLET PO (21:23)
[2020-05-02 06:00] VITALS: BP 220/92; PULSE 65; RESP 16; TEMP 36.5; O2SAT 97
[2020-05-02] MEDS: LEVOTHYROXINE SODIUM 75 MCG TABLET PO (06:37)
[2020-05-02 08:00] VITALS: PULSE 55; RESP 12; O2SAT 100
[2020-05-02 09:02] VITALS: BP 181/73; PULSE 59
[2020-05-02] MEDS: CARBIDOPA/LEVODOPA 25/100 MG TABLET 1 TABLET PO ×3 (09:10→16:29)
[2020-05-02] MEDS: SACCHAROMYCES BOULARDII 250 MG CAPSULE PO ×3 (09:10→16:29)
[2020-05-02] MEDS: CARBIDOPA/LEVODOPA 12.5/50 MG TABLET 1 TABLET PO ×3 (09:11→16:28)
[2020-05-02] MEDS: CHOLECALCIFEROL 1,000 UNITS TABLET 2000 UNITS PO (09:11)
[2020-05-02] MEDS: ESCITALOPRAM OXALATE 10 MG TABLET 20 MG PO (09:11)
[2020-05-02 13:52] VITALS: BP 172/79; PULSE 55; RESP 12; TEMP 36.8; O2SAT 100
--- NOTE | 2020-05-02 16:14 | PM.IMPN ---
Progress Note: A&P Assessment and Plan (1) Diarrhea: Code(s): R19.7 - Diarrhea, unspecified Status: Acute Assessment and Plan: They told me that the patient started had 3 bowel movements this morning in states they are kind of watery in nature and she is concerned for possible C diff. She had another few bowel movements today. Stool cultures were sent along with C diff testing, pending results and once negative she can be discharged to [facility] (2) Orthostatic hypotension: Code(s): I95.1 - Orthostatic hypotension Status: Acute Assessment and Plan: Patient has a longstanding history of orthostatic hypotension for which she follows up with a specialist at [place]. She recently was seen at [place] and they discontinued her Fludrocortisone and started a new medication Northera 100 mg Monday (04/24/2020). She is suppose to take this medication once daily for 1 week, then AM & PM for 1 week, then TID to help with orthostatic hypotension with patient with Parkinson's Disease. Will have the patient's daughter bring this new medication (Northera) so we can have her continue taking it. We started IV fluids initially and she is well hydrated at this time and it was discontinued. Claudio chávez ordered to trying help with her orthostatics Cardiology was consulted who have seen her in the past and were able to get these records from [facility] about her recent medication changes. Cardiology recommends that she does not get up out of the chair or from bed without assistance because it is very unsafe and could cause syncope or another fall and worsening issues. At this time there is nothing else to do about her orthostatic hypotension except continue on the new treatment regimen from her [place] physician and make sure she has assistance with getting up and moving around. Will have her continue working with therapy to see what is best for her after discharge and if she can return to her assisted living facility if she would need a retirement rehab COVID test was negative. She was accepted into [facility] for further PT/OT to prevent falls. Pending discharged due to diarrhea, to rule out C. diff caused by antibiotics. Continue monitoring. Continue checking orthostatics once per shift. Cardiology's input is greatly appreciated. (3) Urinary tract infection: Qualifiers: Hematuria presence: without hematuria Urinary tract infection type: site unspecified Qualified Code(s): N39.0 - Urinary tract infection, site not specified Code(s): N39.0 - Urinary tract infection, site not specified Status: Acute Assessment and Plan: Patient was just on antibiotics, Macrobid from the until the for UTI that was diagnose at urgent care. Urinalysis does appear to be an infection and patient does report having symptoms of frequent urination. Urine culture grew Klebsiella pneumoniae to Macrobid which is why this treatment did not work as an outpatient. It is sensitive to ceftriaxone so we will continue IV ceftriaxone while she is here and discharged on oral cefdinir 1 she is stable for discharge. Continue monitoring. (4) Laceration of scalp: Qualifiers: Encounter type: subsequent encounter Qualified Code(s): S01.01XD - Laceration without foreign body of scalp, subsequent encounter Code(s): S01.01XA - Laceration without foreign body of scalp, initial encounter Status: Acute Assessment and Plan: The patient received 1 suture to the back of her head where she fell and hit her head. CT scan was obtained and shows nothing acute. (5) Hypothyroid: Code(s): E03.9 - Hypothyroidism, unspecified Status: Acute Assessment and Plan: Co
[2020-05-02 21:23] VITALS: BP 200/65; PULSE 49; RESP 16; TEMP 36; O2SAT 98
[2020-05-02] MEDS: ASPIRIN 81 MG ENTERIC TABLET PO (21:24)
[2020-05-03 06:00] VITALS: BP 226/89; PULSE 59; RESP 16; TEMP 36.9; O2SAT 99
[2020-05-03] MEDS: LEVOTHYROXINE SODIUM 75 MCG TABLET PO (06:00)
[2020-05-03 06:17] LABS: Anion Gap 4 mmol/L (8-16); Blood Urea Nitrogen 17 mg/dL (7-17); Calcium 8.9 mg/dL (8.4-10.2); Carbon Dioxide 31 mmol/L (22-30); Chloride 103 mmol/L (98-107); Estimated CRCL calculation 40 ml/min; Estimated Glomerular Filt Rate 53; Glucose 92 mg/dL (65-105); Potassium 4.7 mmol/L (3.4-5.0); Sodium 138 mmol/L (137-145)
[2020-05-03 08:00] VITALS: PULSE 59; RESP 16; O2SAT 99
[2020-05-03] MEDS: CARBIDOPA/LEVODOPA 25/100 MG TABLET 1 TABLET PO ×2 (08:29→12:31)
[2020-05-03] MEDS: CHOLECALCIFEROL 1,000 UNITS TABLET 2000 UNITS PO (08:29)
[2020-05-03] MEDS: ESCITALOPRAM OXALATE 10 MG TABLET 20 MG PO (08:29)
[2020-05-03] MEDS: CARBIDOPA/LEVODOPA 12.5/50 MG TABLET 1 TABLET PO ×2 (08:29→12:30)
[2020-05-03] MEDS: SACCHAROMYCES BOULARDII 250 MG CAPSULE PO ×2 (08:30→12:30)
[2020-05-03 09:05] VITALS: BP 156/73; BP 99/53; PULSE 70
--- NOTE | 2020-05-03 09:47 | PM.DS ---
DS: Admitting Diagnosis Admitting Diagnosis Admitting Diagnosis: orthostatic hypotention/uti DS: Discharge Diagnosis Discharge Diagnosis (1) Diarrhea: Code(s): R19.7 - Diarrhea, unspecified Status: Acute Assessment and Plan: They told me that the patient started had 3 bowel movements this morning in states they are kind of watery in nature and she is concerned for possible C diff. She reports improvement of her diarrhea with taking the probiotics. She has not had a bowel movement yet today. Stool culture was negative for C diff. Still pending further stool culture results but at this time with improved symptoms she is stable for discharge to SNF. (2) Orthostatic hypotension: Code(s): I95.1 - Orthostatic hypotension Status: Acute Assessment and Plan: Patient has a longstanding history of orthostatic hypotension for which she follows up with a specialist at [place]. She recently was seen at [place] and they discontinued her Fludrocortisone and started a new medication Northera 100 mg Monday (04/24/2020). She is suppose to take this medication once daily for 1 week, then AM & PM for 1 week, then TID to help with orthostatic hypotension with patient with Parkinson's Disease. Will have the patient's daughter bring this new medication (Northera) so we can have her continue taking it. We started IV fluids initially and she is well hydrated at this time and it was discontinued. Claudio chávez ordered to trying help with her orthostatics Cardiology was consulted who have seen her in the past and were able to get these records from [facility] about her recent medication changes. Cardiology recommends that she does not get up out of the chair or from bed without assistance because it is very unsafe and could cause syncope or another fall and worsening issues. At this time there is nothing else to do about her orthostatic hypotension except continue on the new treatment regimen from her [place] physician and make sure she has assistance with getting up and moving around. Will have her continue working with therapy to see what is best for her after discharge and if she can return to her assisted living facility if she would need a [facility] rehab COVID test was negative. She was accepted into [facility] for further PT/OT to prevent falls. (3) Urinary tract infection: Qualifiers: Hematuria presence: without hematuria Urinary tract infection type: site unspecified Qualified Code(s): N39.0 - Urinary tract infection, site not specified Code(s): N39.0 - Urinary tract infection, site not specified Status: Acute Assessment and Plan: Patient was just on antibiotics, Macrobid from the until the for UTI that was diagnose at urgent care. Urinalysis does appear to be an infection and patient does report having symptoms of frequent urination. Urine culture grew Klebsiella pneumoniae to Macrobid which is why this treatment did not work as an outpatient. It is sensitive to ceftriaxone. Will discharged on oral cefdinir. (4) Laceration of scalp: Qualifiers: Encounter type: subsequent encounter Qualified Code(s): S01.01XD - Laceration without foreign body of scalp, subsequent encounter Code(s): S01.01XA - Laceration without foreign body of scalp, initial encounter Status: Acute Assessment and Plan: The patient received 1 suture to the back of her head where she fell and hit her head. CT scan was obtained and shows nothing acute. Will need to follow up with PCP in 1 week to have suture removed and evaluated. (5) Hypothyroid: Code(s): E03.9 - Hypothyroidism, unspecified Status: Acute Assessment and Plan: Contin
--- NOTE | 2020-05-07 08:46 | PC.NURSE ---
Stool Campylobacter and Salmonella are both negative.
== END 2020-05-03 13:00 | DRG 312 ==
LOC: ANHED 15:14 → ANH3MED 04-29 02:54
PROVIDERS: Nurse Practitioner; Admitting Provider Family Medicine; Emergency Provider Emergency Medicine; Visit Provider Physician Assistant
DX: I95.1 Orthostatic hypotension (principal); N39.0 Urinary tract infection, site not specified; N17.9 Acute kidney failure, unspecified; B96.1 Klebsiella pneumoniae [K. pneumoniae] as the cause of diseases classified elsewhere; Z20.828 Contact with and (suspected) exposure to other viral communicable diseases; R29.6 Repeated falls; R19.7 Diarrhea, unspecified; G20 Parkinson's disease; E03.9 Hypothyroidism, unspecified; I12.9 Hypertensive chronic kidney disease with stage 1 through stage 4 chronic kidney disease, or unspecified chronic kidney disease; N18.30 Chronic kidney disease, stage 3 unspecified; S01.01XA Laceration without foreign body of scalp, initial encounter; W18.39XA Other fall on same level, initial encounter; D64.9 Anemia, unspecified; Z86.73 Personal history of transient ischemic attack (TIA), and cerebral infarction without residual deficits; Z98.49 Cataract extraction status, unspecified eye
CPT/HCPCS: 12001; 36415; 70450; 72125; 80048; 80053; 81001; 82728; 83735; 84443; 85025; 87045; 87046; 87077; 87086; 87088; 87186; 87324; 87427; 87635; 90471; 90715; 93005; 96360; 97110; 97161; 97165; 97530; 99285; A9270; C9803; J0131; J0696; J7030; J7120; L0140; U0003

== ENCOUNTER 2020-06-02 15:28 | Emergency (ER) | payer MEDICARE, BC, SELFPAY ==
--- NOTE | 2020-06-02 15:34 | ED.FEMALEGU ---
HPI - Female Genitourinary General Chief complaint: Urogenital-Female Stated complaint: pos uti Time Seen by Provider: 06/02/20 16:06 Source: patient and RN notes reviewed Mode of arrival: ambulatory Limitations: no limitations History of Present Illness HPI Narrative: 80-year-old female presents with concern for possible urinary tract infection. She reports 3-day history of urgency, frequency. Reports she was hospitalized in the middle of April and given antibiotics IV for urosepsis. She denies any current fever, confusion, nausea, vomiting, back pain, hematuria. MD elicited complaint: UTI Related Data Home Medications Medication Instructions Recorded Confirmed aspirin [Aspir-81] 81 mg PO HS 01/28/20 06/02/20 atorvastatin 10 mg PO HS 01/28/20 06/02/20 carbidopa-levodopa 25 - 100 tablet PO TID 01/28/20 06/02/20 escitalopram oxalate 20 mg PO DAILY 01/28/20 06/02/20 levothyroxine 75 mcg PO DAILY 01/28/20 06/02/20 potassium chloride 20 meq PO DAILY 01/28/20 06/02/20 cholecalciferol (vitamin D3) 50 mcg PO DAILY 04/28/20 06/02/20 Allergies Allergy/AdvReac Type Severity Reaction Status Date / Time ciprofloxacin Allergy Unknown THROAT Verified 04/28/20 10:23 SWELLING codeine Allergy Unknown THROAT Verified 04/28/20 10:23 SWELLING/RASH gadobenic acid Allergy Unknown THROAT Verified 04/28/20 10:23 [From contrast - MRI] SWELLING iohexol Allergy Unknown THROAT Verified 04/28/20 10:23 [From contrast - CT, X-RAY] SWELLING Penicillins Allergy Unknown Hives / Verified 04/28/20 10:23 Red Face sulfamethoxazole Allergy Unknown THROAT Verified 04/28/20 10:23 SWELLING/HIVES tetracycline Allergy Unknown THROAT Verified 04/28/20 10:23 SWELLING trimethoprim Allergy Unknown THROAT Verified 04/28/20 10:23 SWELLILNG Contrast Media Allergy Unknown THROAT Uncoded 03/27/20 06:14 SWELLILNG Review of Systems Review of Systems: Narrative: CONSTITUTIONAL: Denies malaise, chills, sweats, or fever. CARDIOVASCULAR: Denies chest pain, palpitations, or edema. RESPIRATORY: Denies cough or dyspnea. GASTROINTESTINAL: Denies abdominal pain, nausea, vomiting, diarrhea GENITOURINARY: Denies flank pain, dysuria or hematuria. Reports urinary urgency, frequency MUSCULOSKELETAL: Denies myalgia. NEUROLOGIC: Denies numbness, weakness, confusion, or headache. 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 Chronic anemia Chronic back pain Chronic kidney disease, stage 3 Baseline creatinine between 1.1 and 1.20. Essential hypertension Hypothyroid Irritable bowel syndrome diarrhea Mitral valve prolapse Orthostatic hypertension Parkinsons TIA (transient ischemic attack) Surgical History Surgical History History of appendectomy History of cataract surgery History of cholecystectomy History of partial hysterectomy History of tonsillectomy Status post clamping of cerebral aneurysm Left frontal craniotomy with left parasellar aneurysm clipping in 2008. Family History Family History Mother COPD (chronic obstructive pulmonary disease) Lung cancer Sibling COPD (chronic obstructive pulmonary disease) Father Acute myocardial infarction Sibling Breast cancer Social History Social History (Updated 04/28/20 @ 23:34 by Verito Hooks NP) Social History: Surrogate decision maker: Jordyn White, daughter. Code status: Full code at this time, patient states I don't know. the patient had 1 daughter and 2 sons and 1 son committed suicide. Patient states she is a full code. She is she worked for the [employer] out at [employer]. Smoking status: Never smoker Sec
[2020-06-02 15:43] VITALS: BP 189/79; PULSE 70; RESP 20; TEMP 36.6; O2SAT 100
[2020-06-02] MEDS: cefTRIAXone 1 GM VIAL IM (16:05)
[2020-06-02] MEDS: LIDOCAINE HCL 1% LOCAL INJ 20 ML VIAL 2.1 ML INFILTRATE (16:06)
== END 2020-06-02 16:39 | disposition home or self-care (01) ==
PROVIDERS: Emergency Provider Nurse Practitioner
DX: N39.0 Urinary tract infection, site not specified (principal); Z87.891 Personal history of nicotine dependence; E03.9 Hypothyroidism, unspecified; I34.1 Nonrheumatic mitral (valve) prolapse; Z86.73 Personal history of transient ischemic attack (TIA), and cerebral infarction without residual deficits; G20 Parkinson's disease; I12.9 Hypertensive chronic kidney disease with stage 1 through stage 4 chronic kidney disease, or unspecified chronic kidney disease; N18.30 Chronic kidney disease, stage 3 unspecified
CPT/HCPCS: 81003; 87077; 87086; 87088; 87186; 96372; 99213; G0463; J0696

== ENCOUNTER 2020-09-19 06:08 | Emergency (ER) | payer MEDICARE, BC, SELFPAY ==
--- NOTE | ~2020-09-19 | XR_ITS ---
EXAMINATION: XR hip BI 2V w AP pelvis EXAM DATE: 09/19/2020 07:48 INDICATION: Fall. Pelvic injury. Initial encounter. TECHNIQUE: Each hip imaged independently (separate right and also left hip) 'frog leg' and frontal p rojections for interpretation. Frontal projection pelvis. Comparison is made to prior examination fr 03/08/2020. FINDINGS: No radiographic evidence of hip avascular necrosis. There are no acute pelvic, hip fractur es or dislocations identified. There is no subcutaneous gas. The soft tissue is unremarkable. The re are no radiopaque foreign bodies. 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 IMPRESSION: 1. Pelvis, hip exam without acute osseous findings. Reviewed, dictated and finalized at location A. ITIZER
--- NOTE | ~2020-09-19 | XR_ITS ---
EXAMINATION: XR elbow RT min 3V EXAM DATE: 09/19/2020 07:48 INDICATION: Fall, lateral skin tear right elbow. Right elbow pain. Initial encounter. TECHNIQUE: Right elbow frontal, lateral with flexion, and oblique projections obtained and reviewed. There is no prior study for comparison. FINDINGS: Right elbow anterior humeral line intact. There are no acute fractures or dislocations mari ntified. There is no subcutaneous gas. There is soft tissue swelling over the olecranon. There are no radiopaque foreign bodies. IMPRESSION: 1. Right elbow exam without acute osseous findings. 2. Soft tissue swelling. Reviewed, dictated and finalized at location A. WRAPPER
--- NOTE | ~2020-09-19 | CT_ITS ---
EXAMINATION: CT lumbar spine wo con EXAM DATE: 09/19/2020 10:16 INDICATION: Initial encounter following injury, with pain of the low back. Hematoma. TECHNIQUE: Spiral CT lumbar spine was performed without contrast. Axial, coronal and sagittal images of the lumbar spine were reviewed. The dose-length product (DLP) for this examination was 362.62 mGy- cm. The exposure was tailored according to patient size (auto mA exposure control), and iterative re construction (ASIR) was used as additional dose reduction technique. Comparison is made to prior exam ination from 11/20/2018. FINDINGS: There is subacute right 11th rib fracture posteriorly. Sacroiliac joints are intact. There is no elder dence of acute lumbar fracture. There is no disc space widening or traumatic vertebral body subluxat ion suspected. Paraspinal soft tissue is unremarkable. Overall moderate lumbar spondylosis. There i s posterior subcutaneous hematoma and swelling, hematoma measuring 2 x 5 cm in greatest axial dimensi ons at the L4 level. A detailed level by level evaluation of spondylosis can be added as addendum if requested. IMPRESSION: 1. Posterior lumbar subcutaneous hematoma and surrounding contusion/swelling. 2. Subacute right 11th rib fracture. 3. Moderate lumbar spondylosis. 4. No acute lumbar fractures. Reviewed, dictated and finalized at location A. CARE MANAGER
[2020-09-19 06:05] VITALS: BP 153/71; PULSE 81; RESP 18; TEMP 36.6; O2SAT 96
[2020-09-19] MEDS: ACETAMINOPHEN 500 MG TABLET 1000 MG PO (07:53)
--- NOTE | 2020-09-19 08:00 | ED.FALL ---
HPI - Fall General Chief Complaint: Fall Stated Complaint: fall Time Seen by Provider: 09/19/20 06:58 Source: patient and family Mode of arrival: EMS Limitations: dementia History of Present Illness HPI Narrative: This is an 80 year old female with history of Parkinson's who presents from [facility] for evaluation of a fall that occurred 7 hours ago. Her daughter states patient was bending over to pull up her pants while in the bathroom, and she lost her balance and fell. There was staff with her that tried to catch her when she fell. She reports patient fell onto her buttocks and fell backwards hitting her lower back on vanity. Patient has a hematoma to her lower back. Patient initially when to bed after this fall. This morning she started complaining about more pain to her lower back so she was sent to ER for evaluation. Patient denies hitting her head or LOC. She denies neck pain, rib pain, or upper extremity pain. She reports stiffness in bilateral upper leg. She denies numbness or tingling to extremities. She has not taken anything for pain. She denies chronic anticoagulation. complaint: fall Related Data Home Medications Medication Instructions Recorded Confirmed potassium chloride 20 meq PO DAILY 01/28/20 06/02/20 carbidopa 25 mg-levodopa 100 mg 1 tablet PO TID tablet 08/05/20 tablet venlafaxine 37.5 mg PO BID 09/19/20 Allergies Allergy/AdvReac Type Severity Reaction Status Date / Time ciprofloxacin Allergy Unknown THROAT Verified 09/19/20 07:48 SWELLING codeine Allergy Unknown THROAT Verified 09/19/20 07:48 SWELLING/RASH gadobenic acid Allergy Unknown THROAT Verified 09/19/20 07:48 [From contrast - MRI] SWELLING iohexol Allergy Unknown THROAT Verified 09/19/20 07:48 [From contrast - CT, X-RAY] SWELLING sulfamethoxazole Allergy Unknown THROAT Verified 09/19/20 07:48 SWELLING/HIVES tetracycline Allergy Unknown THROAT Verified 09/19/20 07:48 SWELLING trimethoprim Allergy Unknown THROAT Verified 09/19/20 07:48 SWELLILNG Contrast Media Allergy Unknown THROAT Uncoded 09/19/20 07:48 SWELLILNG Review of Systems Review of Systems: All systems reviewed & are unremarkable except as noted in HPI and below PMFSH Past Medical History Medical History Anxiety Blood in urine 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 Cataracts, both eyes Chicken pox Cholecystectomy planned Chronic anemia Chronic back pain Chronic kidney disease, stage 3 Baseline creatinine between 1.1 and 1.20. Essential hypertension Fainting H/O one miscarriage Hypothyroid Irritable bowel syndrome diarrhea Mitral valve prolapse Mumps Nervousness Orthostatic hypertension Parkinsons Pneumonia Polio TIA (transient ischemic attack) Surgical History Surgical History History of appendectomy (~1984) History of cataract surgery History of cholecystectomy (~1964) History of partial hysterectomy History of tonsillectomy Status post clamping of cerebral aneurysm (~2008) Left frontal craniotomy with left parasellar aneurysm clipping in 2008. Family History Family History Mother COPD (chronic obstructive pulmonary disease) Lung cancer Sibling COPD (chronic obstructive pulmonary disease) Father Acute myocardial infarction Sibling Breast cancer Social History Social History Social History: Surrogate decision maker: Jordyn White, daughter. Code status: Full code at this time, patient states I don't know. the patient had 1 daughter and 2 sons and 1 son committed suicide. Patient states she is a full code. She is she worked for the [employer] out at [employer]. Smoking status:
[2020-09-19 08:02] VITALS: BP 109/65; PULSE 75; RESP 15; O2SAT 97
[2020-09-19 08:03] LABS: Basophils Absolute Auto 0.1 K/mm3 (0.0-0.1); Basophils Percent Auto 0.5 % (0.2-1.2); Eosinophils Absolute Auto 0.1 K/mm3 (0-0.3); Eosinophils Percent Auto 0.6 % (0-4.4); Hematocrit 37.3 % (37.0-47.0); Hemoglobin 12.1 g/dL (12.0-15.0); Immature Granulocyte Absolute 0.05 K/mm3 (0.00-0.031); Immature Granulocyte Percent A 0.4 % (0-0.5); Lymphocytes Absolute Auto 0.83 K/mm3 (0.9-3.2); Lymphocytes Percent Auto 6.9 % (18.3-44.2); Mean Corpuscular HGB Conc 32.4 g/dl (32-36); Mean Corpuscular Hemoglobin 30.6 pg (26-34); Mean Corpuscular Volume 94.4 fl (80-100); Mean Platelet Volume 11.2 fl (7.4-10.4); Monocytes Absolute Auto 0.5 K/mm3 (0.1-0.6); Neutrophils Absolute Auto 10.5 K/mm3 (1.3-6.7); Neutrophils Percent Auto 87.6 % (45.5-73.1); Platelet Count Result 155 k/mm3 (150-375); Red Blood Count 3.95 M/mm3 (4.2-5.4); Red Cell Distribution Width 12.1 % (11.5-14.5)
[2020-09-19 08:12] LABS: Prothrombin Time 13.8 Seconds (11.1-14.7)
[2020-09-19 08:13] LABS: Partial Thromboplastin Time 24.3 SECONDS (22.3-36.8)
[2020-09-19 08:16] LABS: Albumin Level 3.6 g/dL (3.5-5.1); Alkaline Phosphatase 82 U/L (38-126); Anion Gap 3 mmol/L (8-16); Aspartate Amino Transferase 24 U/L (14-36); Bilirubin,Total 0.8 mg/dL (0.2-1.3); Blood Urea Nitrogen 22 mg/dL (7-17); Calcium 8.4 mg/dL (8.4-10.2); Carbon Dioxide 29 mmol/L (22-30); Chloride 105 mmol/L (98-107); Estimated CRCL calculation 31 ml/min; Estimated Glomerular Filt Rate 39; Glucose 100 mg/dL (65-105); Potassium 4.7 mmol/L (3.4-5.0); Sodium 137 mmol/L (137-145)
[2020-09-19 08:23] VITALS: TEMP 36.6
[2020-09-19 08:42] LABS: Alanine Aminotransferase < 6 U/L (4-35)
[2020-09-19] MEDS: SODIUM CHLORIDE 0.9% IV 500 ML 999 ML IV CONT (08:58)
[2020-09-19 09:46] VITALS: BP 127/59; PULSE 72; RESP 18; O2SAT 99
[2020-09-19 10:08] LABS: Add Urine Microscopic? YES; Appearance Urine Cloudy (Clear); Bilirubin Urine Negative (Negative); Blood Urine 1+ (Negative); Color Urine Yellow (Yellow); Glucose Urine UA Negative (Negative); Ketones Urine Trace mg/dL (Negative); Leukocyte Esterase Ur 3+ LEU/UL (Negative); Mucus Urine Rare /lpf; Nitrate Urine Positive (Negative); Protein Urine 2+ mg/dL (Negative); Specific Grav Ur 1.019 (1.001-1.035); Urobilinogen Urine Negative mg/dL (<2.0); WBC Clumps Urine Present /HPF; WBC Urine >75 /hpf
[2020-09-19 10:58] VITALS: BP 163/78; PULSE 75; RESP 16; O2SAT 99
== END 2020-09-19 10:59 ==
PROVIDERS: Emergency Provider General Practice; PCP Emergency Medicine
DX: S30.0XXA Contusion of lower back and pelvis, initial encounter (principal); S50.01XA Contusion of right elbow, initial encounter; N39.0 Urinary tract infection, site not specified; I12.9 Hypertensive chronic kidney disease with stage 1 through stage 4 chronic kidney disease, or unspecified chronic kidney disease; N18.30 Chronic kidney disease, stage 3 unspecified; E03.9 Hypothyroidism, unspecified; K58.0 Irritable bowel syndrome with diarrhea; I34.1 Nonrheumatic mitral (valve) prolapse; G20 Parkinson's disease; Z86.73 Personal history of transient ischemic attack (TIA), and cerebral infarction without residual deficits; Z86.12 Personal history of poliomyelitis; Z98.42 Cataract extraction status, left eye; Z98.41 Cataract extraction status, right eye; W01.198A Fall on same level from slipping, tripping and stumbling with subsequent striking against other object, initial encounter
CPT/HCPCS: 36415; 51701; 72131; 73080; 73521; 80053; 81001; 85025; 85610; 85730; 87077; 87086; 87088; 87186; 96361; 96374; 99284; A9270; J0696; J7040

== ENCOUNTER 2020-10-02 22:11 | Emergency (ER) | payer MEDICARE, BC, SELFPAY ==
--- NOTE | ~2020-10-02 | XR_ITS ---
XR shoulder LT min 2V DATE: 10/02/2020 23:08 INDICATION: Fall today. Anterior left shoulder pain TECHNIQUE: 5 views COMPARISON: 12/08/2009 left humerus FINDINGS: Diffuse osteopenia. No fracture or dislocation, periosteal reaction or bone destruction or abnormal soft tissue calcifica tion. There is mild superior subluxation of the humeral head with respect to the glenoid process, suggestin g rotator cuff atrophy. Old healed posterior left seventh rib fracture. IMPRESSION: Osteopenia No fracture or dislocation of the left shoulder Suggestion of rotator cuff atrophy. Reviewed, dictated and finalized at location A.
--- NOTE | ~2020-10-02 | CT_ITS ---
EXAMINATION: CT facial & cervical spine wo DATE: 10/02/2020 23:21 INDICATION: Fall. Supraorbital laceration. Neck pain. TECHNIQUE: Computed tomography (CT) of the facial bones and maxillofacial region and cervical spine w as performed without intravenous contrast. Automated exposure control and iterative reconstruction te chnique were employed. Exam dose: 194.22 mGy-cm total exam DLP. COMPARISON: 03/07/2020 CT facial bones 04/28/2020 CT cervical spine. FINDINGS: Facial bones: There is soft tissue swelling in the left supraorbital and left frontal areas with subcutaneous emphy sema secondary to left frontal skin laceration. There is no acute skull fracture detected. There is a bone flap in the left frontal area for prior an eurysm repair, with surgical aneurysm clips in the left clinoid air. There is chronic opacification of the left frontal sinus and very anterior left ethmoid air cell. No nasal bone fracture. No recent facial bone fracture. The orbital floors and diop are intact. The frontozygomatic sutures are preserved. Zygomatic arches are intact. Normal alignment at the temporal mandibular joints and no evidence of mandible fracture. Cervical spine: No fracture or dislocation or locked facet. C1 and C2 are normally aligned and the odontoid process i s intact. 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 Moderate degenerative disease at C4-5 and severe degenerative disc disease at C5-6 and C6-7. There is moderately severe degenerative disc disease and mild anterolisthesis at C7-T1. There is degenerative change throughout the apophyseal joints cervical spine. There is prominent uncovertebral joint spurring at C5-6 and C6-7. IMPRESSION: Left frontal and supraorbital soft tissue swelling, left frontal laceration and subcutan eous emphysema No recent facial fracture Status post left aneurysm repair with bone flap in the left frontal temporal region Chronic opacified left frontal sinus and anterior left ethmoid air cell Prominent cervical spondylosis; no cervical spine fracture or dislocation Reviewed, dictated and finalized at Location A. Reviewed, dictated and finalized at location A. IMPRESSION: Left frontal and supraorbital soft tissue swelling, left frontal l aceration and subcutaneous emphysema No recent facial fracture Status post left aneurysm repair with bone flap in the left frontal temporal re gion Chronic opacified left frontal sinus and anterior left ethmoid air cell Prominent cervical spondylosis; no cervical spine fracture or dislocation
--- NOTE | ~2020-10-02 | CT_ITS ---
EXAMINATION: CT brain wo con DATE: 10/02/2020 23:21 INDICATION: Fall. Left forehead laceration, neck pain TECHNIQUE: Computed tomography (CT) of the head was performed without intravenous contrast. The mA wa s adjusted according to patient size. Iterative reconstruction technique was employed. Exam dose: 68 1.00 mGy-cm total exam DLP. COMPARISON: 04/28/2020 CT brain FINDINGS: Postoperative change including left postcraniotomy changes and left supraclinoid aneurysm c lips, with associated streak artifact. There is chronic left frontal temporal encephalomalacia, stabl e since 04/28/2020. Nonspecific diminished attenuation of the cerebral white matter, likely due to chronic small vessel i schemic changes. Bilateral carotid siphon internal carotid artery calcifications. No intracranial mass lesion or hemorrhage, midline shift or mass effect effect. No subdural or epidur al hematoma. There is chronic opacification of the left frontal sinus. There is left periorbital edema, extending along the left nasion and left frontal area with subcutaneous emphysema consistent with left supraorb ital laceration. No recent skull fracture. No acute coup or contrecoup intracranial injury is detected. IMPRESSION: Left periorbital and frontal soft tissue swelling, left frontal scalp laceration No acute skull fracture or acute intracranial finding Postoperative change from prior aneurysm repair on the left, with chronic left frontotemporal encepha lomalacia Reviewed, dictated and finalized at Location [facility]. Reviewed, dictated and finalized at location A. IMPRESSION: Left periorbital and frontal soft tissue swelling, left frontal sc alp laceration No acute skull fracture or acute intracranial finding Postoperative change from prior aneurysm repair on the left, with chronic left frontotemporal encephalomalacia
--- NOTE | 2020-10-02 22:13 | PC.NURSE ---
PT presents via EMS from [facility]. Pt fell while walking and hit head on corner of wall. Pt unsure if she loc. pt with approx 4cm laceration above left eyebrow. Pt complaining of headache and left arm pain. Pt states she was calling for assistance to get back into bed when she fell. Pt does not know what caused her to fall. Pt is currently alert and oriented x4.
[2020-10-02 22:20] VITALS: BP 218/88; PULSE 68; RESP 20; O2SAT 99
[2020-10-02 22:33] VITALS: O2SAT 100
[2020-10-02 22:36] VITALS: BP 215/85; PULSE 69; RESP 21; O2SAT 99
--- NOTE | 2020-10-02 22:40 | ED.FALL ---
HPI - Fall General Chief Complaint: Fall Stated Complaint: glf; eye lac; unknown loc Time Seen by Provider: 10/02/20 22:12 Source: patient and EMS Mode of arrival: EMS Limitations: no limitations History of Present Illness HPI Narrative: Patient is 80 years old white female came from assisted living with the chief complaint of a fall and left forehead laceration. Patient was sleeping watching TV, got up without legal assistant, lost her balance and fell forward hitting the wall in the way down to the ground. No loss of consciousness, complaining of left forehead laceration. Patient should not get or walk without assistance. Patient able to get help after getting out of the chair and try to walk without legal assistant then fell. History of multiple falls in the past last one was 1 week ago.. Patient on baby aspirin Related Data Home Medications Medication Instructions Recorded Confirmed potassium chloride 20 meq PO DAILY 01/28/20 06/02/20 carbidopa 25 mg-levodopa 100 mg 1 tablet PO TID tablet 08/05/20 tablet venlafaxine 37.5 mg PO BID 09/19/20 Allergies Allergy/AdvReac Type Severity Reaction Status Date / Time ciprofloxacin Allergy Unknown THROAT Verified 09/19/20 07:48 SWELLING codeine Allergy Unknown THROAT Verified 09/19/20 07:48 SWELLING/RASH gadobenic acid Allergy Unknown THROAT Verified 09/19/20 07:48 [From contrast - MRI] SWELLING iohexol Allergy Unknown THROAT Verified 09/19/20 07:48 [From contrast - CT, X-RAY] SWELLING sulfamethoxazole Allergy Unknown THROAT Verified 09/19/20 07:48 SWELLING/HIVES tetracycline Allergy Unknown THROAT Verified 09/19/20 07:48 SWELLING trimethoprim Allergy Unknown THROAT Verified 09/19/20 07:48 SWELLILNG Contrast Media Allergy Unknown THROAT Uncoded 09/19/20 07:48 SWELLILNG Review of Systems Review of Systems: Narrative: CONSTITUTIONAL: Denies fever, chills, or sweats. EYES: Denies visual changes, redness, or discharge. ENT: Denies rhinorrhea, congestion, sore throat, or otalgia. CARDIOVASCULAR: Denies chest pain, palpitations, or edema. RESPIRATORY: Denies cough or dyspnea. GASTROINTESTINAL: Denies abdominal pain, nausea, vomiting, or diarrhea. GENITOURINARY: Denies dysuria or hematuria. SKIN: Denies rash or itching. MUSCULOSKELETAL: Denies back pain, joint pain, or myalgia. NEUROLOGIC: Denies headache, numbness, or weakness. PSYCHIATRIC: Denies anxiety or depression. 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 Cataracts, both eyes Chicken pox Cholecystectomy planned Chronic anemia Chronic back pain Chronic kidney disease, stage 3 Baseline creatinine between 1.1 and 1.20. Essential hypertension Fainting H/O one miscarriage Hypothyroid Irritable bowel syndrome diarrhea Mitral valve prolapse Mumps Nervousness Orthostatic hypertension Parkinsons Pneumonia Polio TIA (transient ischemic attack) Surgical History Surgical History History of appendectomy (~1984) History of cataract surgery History of cholecystectomy (~1964) History of partial hysterectomy History of tonsillectomy Status post clamping of cerebral aneurysm (~2008) Left frontal craniotomy with left parasellar aneurysm clipping in 2008. Family History Family History Mother COPD (chronic obstructive pulmonary disease) Lung cancer Sibling COPD (chronic obstructive pulmonary disease) Father Acute myocardial infarction Sibling Breast cancer Social History Social History Social History: Surrogate decision maker: Jordyn White, daughter. Code status: Full code at this time, patient states I don't know. the patient had 1 daughter and 2 sons and 1 son committed hill
[2020-10-02] MEDS: TETANUS,DIPHTHERIA,AC PERTUSSIS ADULT (0.5 ML) BOOSTRIX IM (22:43)
--- NOTE | 2020-10-02 23:07 | PC.NURSE ---
Pt to radiology via cart.
[2020-10-02 23:41] VITALS: BP 203/71; PULSE 72; RESP 20; O2SAT 99
--- NOTE | 2020-10-02 23:41 | PC.NURSE ---
EDMD at bedside for laceration repair.
[2020-10-02] MEDS: LIDO 1%/EPINEPHRINE 1:100,000 20 ML VIAL (23:43)
--- NOTE | 2020-10-03 00:30 | PC.NURSE ---
CALLED [facility] FOR RETURN TRANSPORT TO FACILITY....[id number]
--- NOTE | 2020-10-03 00:44 | PC.NURSE ---
Laceration repair completed and pt tolerated well. Wound cleansed with 0.9 NS, abt ointment and bandaid applied. Pt resting on cart with call button and personal items within reach. Son at bedside updated and aware of poc. All questions and concerns addressed. Pt provided dc documents. Educated on the need to keep would clean and dry and pt voices her understanding.
--- NOTE | 2020-10-03 01:06 | PC.NURSE ---
Transport to arrive for pt dc at 0300.
== END 2020-10-03 03:15 ==
PROVIDERS: Emergency Provider Emergency Medicine; PCP Emergency Medicine
DX: S01.81XA Laceration without foreign body of other part of head, initial encounter (principal); Z23 Encounter for immunization; Z79.82 Long term (current) use of aspirin; F41.9 Anxiety disorder, unspecified; I12.9 Hypertensive chronic kidney disease with stage 1 through stage 4 chronic kidney disease, or unspecified chronic kidney disease; N18.30 Chronic kidney disease, stage 3 unspecified; E03.9 Hypothyroidism, unspecified; I34.1 Nonrheumatic mitral (valve) prolapse; G20 Parkinson's disease; D64.9 Anemia, unspecified; Z86.12 Personal history of poliomyelitis; Z86.73 Personal history of transient ischemic attack (TIA), and cerebral infarction without residual deficits; Z98.42 Cataract extraction status, left eye; Z98.41 Cataract extraction status, right eye; W01.198A Fall on same level from slipping, tripping and stumbling with subsequent striking against other object, initial encounter; M85.812 Other specified disorders of bone density and structure, left shoulder; M47.812 Spondylosis without myelopathy or radiculopathy, cervical region
CPT/HCPCS: 12013; 70450; 70486; 72125; 73030; 90471; 90715; 99284

== ENCOUNTER 2020-11-02 10:28 | Outpatient (CLI) | payer MEDICARE, BC, SELFPAY ==
--- NOTE | 2020-11-04 10:20 | WPDNEUROLOGY ---
Neurology EEG Report General Information Date of Study: 11/02/20 TEST eeg DIAGNOSIS Possible seizures CONDITION OF RECORDING awake drowsy and sleep EEG NUMBER [id number] CLINICAL HISTORY patient reported for the last couple of years she has been having episodes of becoming lightheaded and then losing consciousness. She has history of brain aneurysm the left hemisphere and also history of Parkinson's disease EEG DESCRIPTION background rhythm consists of poorly organized low to medium voltage 5 to 7 hertz per 2nd theta activity admixed with poorly organized low voltage posterior alpha rhythm. Bilateral sleep activity seen during sleep. Non paroxysmal. Nonfocal. Nonlateralizing. IMPRESSION Mildly abnormal record due to the presence of excessive amount of theta activity and absence of the normal basic occipital activity. Clinical correlation recommended. These abnormalities could be suggestive of underlying organic a metabolic encephalopathy or neuro degenerative process. There is no evidence of paroxysmal activity
== END 2020-11-02 10:29 | disposition home or self-care (01) ==
PROVIDERS: PCP Emergency Medicine
DX: G20 Parkinson's disease (principal); R94.01 Abnormal electroencephalogram [EEG]
CPT/HCPCS: 95816

== ENCOUNTER 2020-12-24 10:48 | Emergency (ER) | payer MEDICARE, BC, SELFPAY ==
--- NOTE | ~2020-12-24 | CT_ITS ---
EXAMINATION: CT brain wo con EXAM DATE: 12/24/2020 11:51 INDICATION: Head Injury . Fall. TECHNIQUE: Spiral CT of the head was performed without contrast. Axial, coronal and sagittal images were reviewed. The dose-length product (DLP) for this examination was 605.33 mGy-cm. The exposure w as tailored according to patient size, and iterative reconstruction (ASIR) was used as additional dos e reduction technique. Comparison is made to prior examination from 10/02/2020. FINDINGS: Left suprasellar aneurysm clip. Left frontotemporal craniotomy. Moderate amount of underlyi ng left frontotemporal encephalomalacia. There is no acute intraparenchymal hemorrhage. No evidence of intraparenchymal brain mass lesion. No evidence of acute infarction. Please note that initial he ad CT has limited sensitivity for small or acute infarctions. There is moderate periventricular an d subcortical hypodensity, nonspecific but probably related to small vessel ischemic disease. There is mild prominence of the sulci and ventricles related to cerebral atrophy. There is intracranial carotid arteriosclerosis. There are no extra-axial collections. There is no mass effect or midline shift. Patient has had bilateral ocular lens surgery. Small left frontal scalp contusion. Improveme nt in amount of opacity within the left frontal sinus. IMPRESSION: 1. No acute intracranial findings. 2. Sequela from prior ruptured and treated left suprasellar cerebral artery aneurysm. 3. Chronic age related findings. 4. Small left frontal scalp contusion. Reviewed, dictated and finalized at location A. IMPRESSION: 1. No acute intracranial findings. 2. Sequela from prior ruptured and treated left suprasellar cerebral artery an eurysm. 3. Chronic age related findings. 4. Small left frontal scalp contusion.
[2020-12-24 11:11] VITALS: BP 211/108; PULSE 70; RESP 18; TEMP 36.2; O2SAT 100
--- NOTE | 2020-12-24 11:14 | ED.FALL ---
HPI - Fall General Chief Complaint: Fall Stated Complaint: fell this morning, here for ct Time Seen by Provider: 12/24/20 11:00 History of Present Illness HPI Narrative: Patient is an 80-year-old female who presents ER after striking her head on the ground. Patient was placed on a toilet by her assistant professor surgical technology. The assistant professor surgical technology then left the room patient fell off striking her head. Unknown LOC. Patient oriented x3. Patient does take aspirin and nurse practitioner at facility when patient evaluated for head bleed. Patient has history of Parkinson's. She was also recently diagnosed with a UTI and they were going to be starting antibiotic therapy tomorrow. Patient reports urinary frequency. This UTI has been chronic since April. Patient is not having fevers or chills or sweats. Related Data Home Medications Medication Instructions Recorded Confirmed potassium chloride 20 meq PO DAILY 01/28/20 06/02/20 carbidopa 25 mg-levodopa 100 mg 1 tablet PO TID tablet 08/05/20 tablet venlafaxine 37.5 mg PO BID 09/19/20 Allergies Allergy/AdvReac Type Severity Reaction Status Date / Time ciprofloxacin Allergy Unknown THROAT Verified 12/24/20 11:20 SWELLING codeine Allergy Unknown THROAT Verified 12/24/20 11:20 SWELLING/RASH gadobenic acid Allergy Unknown THROAT Verified 12/24/20 11:20 [From contrast - MRI] SWELLING iohexol Allergy Unknown THROAT Verified 12/24/20 11:20 [From contrast - CT, X-RAY] SWELLING sulfamethoxazole Allergy Unknown THROAT Verified 12/24/20 11:20 SWELLING/HIVES tetracycline Allergy Unknown THROAT Verified 12/24/20 11:20 SWELLING trimethoprim Allergy Unknown THROAT Verified 12/24/20 11:20 SWELLILNG Contrast Media Allergy Unknown THROAT Uncoded 12/24/20 11:20 SWELLILNG Review of Systems Review of Systems: All systems reviewed & are unremarkable except as noted in HPI and below Constitutional: Constitutional: Denies chills, Denies fever(s) and Reports weakness Musculoskeletal: Musculoskeletal: Denies arthralgias and Denies muscle cramps Neurologic: Denies confusion, Denies headache(s), Denies focal weakness and Denies numbness Comments: tremors from parkinsons [facility] Past Medical History Medical History Anxiety Blood in urine 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 Cataracts, both eyes Chicken pox Cholecystectomy planned Chronic anemia Chronic back pain Chronic kidney disease, stage 3 Baseline creatinine between 1.1 and 1.20. Essential hypertension Fainting H/O one miscarriage Hypothyroid Irritable bowel syndrome diarrhea Mitral valve prolapse Mumps Nervousness Orthostatic hypertension Parkinsons Pneumonia Polio TIA (transient ischemic attack) Surgical History Surgical History History of appendectomy (~1984) History of cataract surgery History of cholecystectomy (~1964) History of partial hysterectomy History of tonsillectomy Status post clamping of cerebral aneurysm (~2008) Left frontal craniotomy with left parasellar aneurysm clipping in 2009. Family History Family History Mother COPD (chronic obstructive pulmonary disease) Lung cancer Sibling COPD (chronic obstructive pulmonary disease) Father Acute myocardial infarction Sibling Breast cancer Social History Social History Social History: Surrogate decision maker: Jordyn Christopher, daughter. Code status: Full code at this time, patient states I don't know. the patient had 1 daughter and 2 sons and 1 son committed suicide. Patient states she is a full code. She is she worked for the [employer] out at [place]. Smoking status: Never smoker Second hand tobacco smoke exposure: No Alcohol intake: for
[2020-12-24 12:49] LABS: Basophils Percent Auto 0.4 % (0.2-1.2); Eosinophils Absolute Auto 0.1 K/mm3 (0-0.3); Eosinophils Percent Auto 0.5 % (0-4.4); Hematocrit 38.6 % (37.0-47.0); Hemoglobin 12.6 g/dL (12.0-15.0); Immature Granulocyte Absolute 0.03 K/mm3 (0.00-0.031); Immature Granulocyte Percent A 0.3 % (0-0.5); Lymphocytes Absolute Auto 1.27 K/mm3 (0.9-3.2); Lymphocytes Percent Auto 13.4 % (18.3-44.2); Mean Corpuscular HGB Conc 32.6 g/dl (32-36); Mean Corpuscular Hemoglobin 30.2 pg (26-34); Mean Corpuscular Volume 92.6 fl (80-100); Mean Platelet Volume 11.5 fl (7.4-10.4); Monocytes Absolute Auto 0.4 K/mm3 (0.1-0.6); Monocytes Percent Auto 4.5 % (2.6-8.5); Neutrophils Absolute Auto 7.7 K/mm3 (1.3-6.7); Neutrophils Percent Auto 80.9 % (45.5-73.1); Platelet Count Result 156 k/mm3 (150-375); Red Blood Count 4.17 M/mm3 (4.2-5.4); Red Cell Distribution Width 12.4 % (11.5-14.5); White Blood Count 9.5 K/mm3 (4.5-10.0)
[2020-12-24 12:57] LABS: Anion Gap 8 mmol/L (8-16); Blood Urea Nitrogen 21 mg/dL (7-17); Calcium 8.8 mg/dL (8.4-10.2); Carbon Dioxide 29 mmol/L (22-30); Chloride 103 mmol/L (98-107); Estimated CRCL calculation 37 ml/min; Estimated Glomerular Filt Rate 53; Glucose 116 mg/dL (65-105); Potassium 4.4 mmol/L (3.4-5.0); Sodium 140 mmol/L (137-145)
[2020-12-24 13:40] VITALS: BP 173/67; PULSE 69; RESP 16; O2SAT 98
== END 2020-12-24 14:30 ==
PROVIDERS: Emergency Provider Emergency Medicine; PCP Emergency Medicine
DX: S00.03XA Contusion of scalp, initial encounter (principal); N39.0 Urinary tract infection, site not specified; G20 Parkinson's disease; Z79.82 Long term (current) use of aspirin; F41.9 Anxiety disorder, unspecified; D64.9 Anemia, unspecified; I10 Essential (primary) hypertension; E03.9 Hypothyroidism, unspecified; K58.0 Irritable bowel syndrome with diarrhea; I34.1 Nonrheumatic mitral (valve) prolapse; Z86.73 Personal history of transient ischemic attack (TIA), and cerebral infarction without residual deficits; Z86.12 Personal history of poliomyelitis; Z98.49 Cataract extraction status, unspecified eye; W18.11XA Fall from or off toilet without subsequent striking against object, initial encounter
CPT/HCPCS: 36415; 70450; 80048; 85025; 99284

== ENCOUNTER 2021-01-20 09:16 | Emergency (ER) | payer MEDICARE, BC, SELFPAY ==
--- NOTE | ~2021-01-20 | CT_ITS ---
EXAMINATION: CT brain wo con DATE: 01/20/2021 10:10 INDICATION: Head injury. TECHNIQUE: Computed tomography (CT) of the head was performed without intravenous contrast. The mA wa s adjusted according to patient size. Iterative reconstruction technique was employed. The dose-lengt h product was 681.00 mGy-cm. COMPARISON: Head CT 12/24/2020 FINDINGS: There is chronic encephalomalacia in the left frontal temporal region. There is an aneurysm clip in the suprasellar cistern with changes of left-sided craniotomy. There are scattered areas of low attenuation in the cerebral white matter. There is no intracranial hemorrhage, acute infarction, or abnormal intracranial mass lesion. The ventricles are normal in size. There are likely changes of ocular lens replacement surgeries. There is left frontal scalp soft tissue swelling. There is mucosal thickening in left frontal sinus that is similar to the prior exam. There is chronic dehiscence of t he anterior and posterior diop of the left frontal sinus from the prior craniotomy, and the frontal scalp soft tissue swelling overlies this dehiscence. IMPRESSION: 1. Chronic encephalomalacia in the left frontal temporal region. 2. Stable moderate nonspecific cerebral white matter disease, which likely represents chronic small v essel ischemic disease. Reviewed, dictated and finalized at location A. IMPRESSION: 1. Chronic encephalomalacia in the left frontal temporal region. 2. Stable moderate nonspecific cerebral white matter disease, which likely repr esents chronic small vessel ischemic disease.
--- NOTE | ~2021-01-20 | CT_ITS ---
EXAMINATION: CT facial & cervical spine wo DATE: 01/20/2021 10:10 INDICATION: Head injury. TECHNIQUE: Computed tomography (CT) of the maxillofacial region and cervical spine was performed with out intravenous contrast. Automated exposure control and iterative reconstruction technique were empl oyed. The dose-length product was 218.81 mGy-cm. 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 There are changes of left-sided craniotomy whic h includes dehiscence of the anterior and posterior diop of left frontal sinus. There is stable muco bucky thickening in left frontal sinus. There is scalp soft tissue swelling overlying the left frontal sinus. No acute fracture. There are likely changes of ocular lens replacement surgeries. CERVICAL SPINE CT: There is 4 degrees levocurvature of cervical spine. There is 2 mm anterolisthesis of C7 on T1. Verteb ral body heights are normal. There is mildly decreased disc height at C4-C5. There is severely decrea sed disc height at C5-C6 and C6-C7 with endplate remodeling. The following disc levels are specifical ly discussed: C2-C3: There is ankylosis of the uncovertebral joints. There is ankylosis of the facet joints with mi ld bilateral hypertrophy. There is mild left neural foraminal stenosis. There is no central canal denise nosis. C3-C4: There is mild bilateral uncovertebral joint osteoarthritis. There is severe bilateral facet coy int osteoarthritis. There is mild bilateral neural foraminal stenosis. There is no central canal sten osis. C4-C5: There is no uncovertebral joint osteoarthritis. There is severe bilateral facet joint osteoart hritis. There is mild left neural foraminal stenosis. There is mild central canal stenosis. C5-C6: There is severe bilateral uncovertebral joint osteoarthritis. There is moderate right and amando re left facet joint osteoarthritis. There is mild bilateral neural foraminal stenosis. There is mild central canal stenosis. C6-C7: There is severe bilateral uncovertebral joint osteoarthritis. There is mild right and moderate left facet joint osteoarthritis. There is mild bilateral neural foraminal stenosis. There is mild ce ntral canal stenosis. C7-T1: There is no uncovertebral joint osteoarthritis. There is severe bilateral facet joint osteoart hritis. There is mild bilateral neural foraminal stenosis. There is no central canal stenosis. IMPRESSION: 1. No fracture. 2. Severe cervical spondylosis. Reviewed, dictated and finalized at location A.
--- NOTE | ~2021-01-20 | XR_ITS ---
XR chest 2V DATE: 01/20/2021 10:20 INDICATION: Fall. Syncope. Hypertension. TECHNIQUE: AP and lateral views COMPARISON: 03/2019 2 view chest FINDINGS: Bilateral hyperinflation and relative flattening the diaphragm., Increased retrosternal air space, consistent with COPD. No pulmonary infiltrate or consolidation, pleural effusion or pulmonary vascular congestion or pneumo thorax. Normal heart size. Aortic calcification and mild unfolding. No hilar or mediastinal enlargement. IMPRESSION: COPD Reviewed, dictated and finalized at location A. IMPRESSION: COPD
[2021-01-20 09:13] VITALS: BP 220/98; PULSE 71; RESP 15; TEMP 36.6; O2SAT 100
--- NOTE | 2021-01-20 09:22 | ECG_ITS ---
Measurements Intervals [place] Rate: 68 P: 40 NM: 168 QRS: -19 QRSD: 106 T: 30 QT: 421 QTc: 449 Interpretive Statements SINUS RHYTHM BASELINE ARTIFACT- I, II, III, AVR, AVL, AVF, V5 NORMAL ECG Electronically Signed On 01-20-2021 11:45:46 CDT by Abdulaziz Montague D.O.
--- NOTE | 2021-01-20 10:08 | ED.FALL ---
HPI - Fall General Chief Complaint: Fall Stated Complaint: FALL/LACERATION Time Seen by Provider: 01/20/21 09:19 Source: patient Mode of arrival: EMS Limitations: no limitations History of Present Illness HPI Narrative: Patient is an 80-year-old female who presents by EMS from assisted living. Patient reports fall off toilet this a.m. hitting head on floor. Patient reports possible syncopal episode. She states she does not remember fall . Patient has a history of frequent falls and Parkinson's. Patient is alert and oriented x3, c-collar in place. Patient has approximate 3 cm laceration above left eyebrow, bleeding controlled. Patient is not on any blood thinners at this time. She reports pain in the laceration and forehead, denies other complaints. complaint: fall Related Data Home Medications Medication Instructions Recorded Confirmed potassium chloride 20 meq PO DAILY 01/28/20 06/02/20 carbidopa 25 mg-levodopa 100 mg 1 tablet PO TID tablet 08/05/20 tablet venlafaxine 37.5 mg PO BID 09/19/20 Allergies Allergy/AdvReac Type Severity Reaction Status Date / Time ciprofloxacin Allergy Unknown THROAT Verified 01/20/21 09:23 SWELLING codeine Allergy Unknown THROAT Verified 01/20/21 09:23 SWELLING/RASH gadobenic acid Allergy Unknown THROAT Verified 01/20/21 09:23 [From contrast - MRI] SWELLING iohexol Allergy Unknown THROAT Verified 01/20/21 09:23 [From contrast - CT, X-RAY] SWELLING sulfamethoxazole Allergy Unknown THROAT Verified 01/20/21 09:23 SWELLING/HIVES tetracycline Allergy Unknown THROAT Verified 01/20/21 09:23 SWELLING trimethoprim Allergy Unknown THROAT Verified 01/20/21 09:23 SWELLILNG Contrast Media Allergy Unknown THROAT Uncoded 01/20/21 09:23 SWELLILNG Review of Systems Review of Systems: Narrative: CONSTITUTIONAL: Denies fever, chills, or sweats. EYES: Denies visual changes, redness, or discharge. ENT: Denies rhinorrhea, congestion, sore throat, or otalgia. CARDIOVASCULAR: Denies chest pain, palpitations, or edema. RESPIRATORY: Denies cough or dyspnea. GASTROINTESTINAL: Denies abdominal pain, nausea, vomiting, or diarrhea. GENITOURINARY: Denies dysuria or hematuria. SKIN: Reports laceration left forehead MUSCULOSKELETAL: Denies back pain, joint pain, or myalgia. NEUROLOGIC: Denies headache, numbness, dizziness, or weakness. PSYCHIATRIC: Denies anxiety or depression. 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 Cataracts, both eyes Chicken pox Cholecystectomy planned Chronic anemia Chronic back pain Chronic kidney disease, stage 3 Baseline creatinine between 1.1 and 1.20. Essential hypertension Fainting H/O one miscarriage Hypothyroid Irritable bowel syndrome diarrhea Mitral valve prolapse Mumps Nervousness Orthostatic hypertension Parkinsons Pneumonia Polio TIA (transient ischemic attack) Surgical History Surgical History History of appendectomy (~1984) History of cataract surgery History of cholecystectomy (~1964) History of partial hysterectomy History of tonsillectomy Status post clamping of cerebral aneurysm (~2008) Left frontal craniotomy with left parasellar aneurysm clipping in 2008. Family History Family History Mother COPD (chronic obstructive pulmonary disease) Lung cancer Sibling COPD (chronic obstructive pulmonary disease) Father Acute myocardial infarction Sibling Breast cancer Social History Social History Social History: Surrogate decision maker: Jordyn White, daughter. Code status: Full code at this time, patient states I don't know. the patient had 1 daughter and 2 sons and 1 son committ
[2021-01-20 10:53] LABS: Basophils Absolute Auto 0.1 K/mm3 (0.0-0.1); Basophils Percent Auto 0.6 % (0.2-1.2); Eosinophils Percent Auto 0.5 % (0-4.4); Hematocrit 39.1 % (37.0-47.0); Hemoglobin 12.8 g/dL (12.0-15.0); Immature Granulocyte Absolute 0.02 K/mm3 (0.00-0.031); Immature Granulocyte Percent A 0.3 % (0-0.5); Lymphocytes Percent Auto 15.4 % (18.3-44.2); Mean Corpuscular HGB Conc 32.7 g/dl (32-36); Mean Corpuscular Hemoglobin 30.3 pg (26-34); Mean Corpuscular Volume 92.7 fl (80-100); Mean Platelet Volume 11.1 fl (7.4-10.4); Monocytes Absolute Auto 0.5 K/mm3 (0.1-0.6); Monocytes Percent Auto 5.8 % (2.6-8.5); Neutrophils Percent Auto 77.4 % (45.5-73.1); Platelet Count Result 167 k/mm3 (150-375); Red Blood Count 4.22 M/mm3 (4.2-5.4); Red Cell Distribution Width 12.8 % (11.5-14.5); White Blood Count 7.8 K/mm3 (4.5-10.0)
[2021-01-20 10:58] LABS: Add Urine Microscopic? YES; Appearance Urine Cloudy (Clear); Bacteria Urine Trace /hpf; Bilirubin Urine Negative (Negative); Blood Urine Negative (Negative); Color Urine Yellow (Yellow); Glucose Urine UA Negative (Negative); Ketones Urine Negative (Negative); Leukocyte Esterase Ur 3+ LEU/UL (Negative); Mucus Urine Rare /lpf; Nitrate Urine Negative (Negative); Protein Urine Negative (Negative); Specific Grav Ur 1.011 (1.001-1.035); Squamous Epithelial Cell Urine Many /hpf (Few); Urobilinogen Urine Negative mg/dL (<2.0); WBC Urine 21-30 /hpf
[2021-01-20 11:00] LABS: Alanine Aminotransferase 7 U/L (4-35); Albumin Level 4.1 g/dL (3.5-5.1); Alkaline Phosphatase 85 U/L (38-126); Anion Gap 5 mmol/L (8-16); Aspartate Amino Transferase 35 U/L (14-36); Bilirubin,Total 0.8 mg/dL (0.2-1.3); Blood Urea Nitrogen 18 mg/dL (7-17); Calcium 8.9 mg/dL (8.4-10.2); Carbon Dioxide 29 mmol/L (22-30); Chloride 104 mmol/L (98-107); Estimated CRCL calculation 37 ml/min; Estimated Glomerular Filt Rate 48; Glucose 89 mg/dL (65-105); Potassium 4.8 mmol/L (3.4-5.0); Sodium 138 mmol/L (137-145)
[2021-01-20 11:12] LABS: Troponin I < 0.012 ng/mL (0.000-0.034)
[2021-01-20 11:43] VITALS: BP 185/78; PULSE 76; RESP 17; O2SAT 99
[2021-01-20 12:46] VITALS: BP 180/85; PULSE 68; RESP 18; O2SAT 99
== END 2021-01-20 12:48 ==
PROVIDERS: Emergency Provider Nurse Practitioner; PCP Emergency Medicine
DX: S01.112A Laceration without foreign body of left eyelid and periocular area, initial encounter (principal); G20 Parkinson's disease; F41.9 Anxiety disorder, unspecified; D64.9 Anemia, unspecified; I12.9 Hypertensive chronic kidney disease with stage 1 through stage 4 chronic kidney disease, or unspecified chronic kidney disease; N18.30 Chronic kidney disease, stage 3 unspecified; E03.9 Hypothyroidism, unspecified; K58.0 Irritable bowel syndrome with diarrhea; I34.1 Nonrheumatic mitral (valve) prolapse; Z87.01 Personal history of pneumonia (recurrent); Z86.73 Personal history of transient ischemic attack (TIA), and cerebral infarction without residual deficits; Z86.12 Personal history of poliomyelitis; Z79.82 Long term (current) use of aspirin; Z98.49 Cataract extraction status, unspecified eye; R82.998 Other abnormal findings in urine; W18.11XA Fall from or off toilet without subsequent striking against object, initial encounter
CPT/HCPCS: 12052; 36415; 70450; 70486; 71046; 72125; 80053; 81001; 84484; 85025; 87077; 87086; 87088; 87186; 93005; 99284

== ENCOUNTER 2021-03-19 10:39 | Outpatient (CLI) | payer MEDICARE, BC, SELFPAY ==
--- NOTE | 2021-03-20 14:18 | WPDNEUROLOGY ---
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 During drowsiness low-voltage beta activity seen diffusely admixed with waxing and waning posterior alpha rhythm photic stimulation produced normal drive. Hyperventilation not done. Throughout the tracing asymmetrical medium voltage 5 to 7 hertz per 2nd theta activity seen over the right hemispheric linkages. Non paroxysmal. Focal. And lateralizing. IMPRESSION Abnormal record due to the presence of right hemispheric theta activity with no evidence of paroxysmal discharge these abnormalities could be suggestive of underlying focal structural lesion clinical correlation recommended
== END 2021-03-19 10:40 | disposition home or self-care (01) ==
PROVIDERS: PCP Emergency Medicine
DX: G20 Parkinson's disease (principal)
CPT/HCPCS: 95816